=== PATIENT | female | born 1960 | race Caucasian/White ===

== ENCOUNTER 2019-06-23 13:14 | Outpatient (CLI) | payer BC, SELFPAY ==
--- NOTE | 2019-06-23 13:35 | MM_ITS ---
WS: [id number] SCREENING DIGITAL MAMMOGRAM WITH CAD HISTORY: SCREENING COMPARISON: 06/28/2014 and 02/24/2008 Bilateral CC and MLO views submitted. Computer aided detection analyzed. Breast composition: There are scattered areas of fibroglandular density. No suspicious masses, microc alcifications or architectural distortion. MM/[id number] IMPRESSION: BI-RADS: 1-Negative FOLLOW UP: 1 Year Follow-up
== END 2019-06-23 13:15 | disposition home or self-care (01) ==
LOC: RADSHAW 13:18
PROVIDERS: Family Provider Nurse Practitioner; PCP Nurse Practitioner; Visit Provider Nurse Practitioner
DX: Z12.31 Encounter for screening mammogram for malignant neoplasm of breast (principal)
CPT/HCPCS: 77067

== ENCOUNTER 2020-05-20 00:41 | Inpatient (IN) | payer BC, SELFPAY ==
[2020-05-20] VITALS (8 sets, daily range): BP systolic 112–146; BP diastolic 72–87; PULSE 74–90; RESP 15–20; TEMP 36.4–36.9; O2SAT 97–98; BMI 26.6
--- NOTE | 2020-05-20 01:16 | W.ED.PSYCH ---
HPI - Psych General: Chief Complaint: Psychiatric Symptoms Stated Complaint: psych issues Time Seen by Provider: 05/20/20 01:02 Source: patient Mode of arrival: ambulatory Limitations: no limitations History of Present Illness: HPI Narrative: Mrs. Shoemaker is a very nice 59-year-old female who comes in complaining of depression, anxiety and thoughts of feeling better off . Patient states she is very depressed and feels as though she needs help. Patient is tearful and cannot talk about in detail why she feels this way but states that she knows that she needs to get help. Patient has no active plan to kill herself just the recurring thoughts that she may be better off if she was . Review of Systems Const: Denies: fever(s), chills, body aches, fatigue, malaise or diaphoresis Eyes: Denies: change in vision, blurry vision, photophobia, eye discomfort, eye discharge, eye redness or yellow eyes ENMT: Denies: throat pain, odynophagia, hoarseness, swelling of lips/tongue, ear or mastoid pain, ear discharge, change in hearing or nasal discharge Card: Denies: chest pain, palpitations, irregular heart rhythm, edema, lightheadedness, syncope, pre-syncope, dyspnea on exertion or orthopnea Resp: Denies: dyspnea, productive cough, non-productive cough, wheezing, hemoptysis or chest congestion GI: Denies: abdominal pain, nausea, vomiting, hematemesis, coffee ground emesis, heartburn, diarrhea, constipation, GI cramping, hematochezia or melena : Denies: flank pain, dysuria, urinary frequency, urinary urgency or hematuria Musc: Denies: neck pain, back pain, extremity pain, extremity swelling, joint pain, joint swelling, joint redness, joint warmth or joint stiffness Skin/Breast: Denies: rash, pruritus, erythema, skin pain or skin tenderness Neuro: Denies: headache(s), numbness in extremities, weakness in extremities, sensory changes, lack of coordination, difficulty walking, dizziness, vertigo, confusion, Slurred speech present or seizure-like activity Abhilash/Lymph: Denies: easy bruising, easy bleeding, petechiae, purpura or enlarged lymph nodes All/Imm: Denies: urticaria, throat swelling, tongue swelling, facial swelling or acute wheezing PFSH ED PFSH: Social History (Updated 07/14/19 @ 08:39 by Toney Martinez LPN) Smoking and tobacco status: current every day smoker Alcohol intake: current Alcohol intake frequency: holidays/special occasions only Physical Exam Const: COMMON NORMALS: no acute distress, patient oriented x3, no limitations and alert GENERAL APPEARANCE: cooperative HENMT: COMMON NORMALS: normocephalic, atraumatic, external ears normal, EAC's normal and Normal external nose present HEAD & SCALP: normal to inspection, normocephalic and atraumatic FACE & SINUS: normal facial exam and face symmetric NOSE: Normal external nose present and Normal nares present EXTERNAL EAR: Yes external ears normal EXTERNAL AUDITORY CANAL: EAC's normal MOUTH: Normal oral and palatal mucosa present, lip normal and tongue normal Eye: COMMON NORMALS: Equal, round and reactive pupils present and conjunctivae normal GENERAL EYE: appearance normal, both eyes and all related structures ALIGNMENT: Yes alignment normal PERIORBITAL: periorbital findings normal EYELID: eyelids normal CONJUNCTIVA: Yes conjunctivae normal SCLERA: sclerae normal PUPIL: Yes Equal, round and reactive pupils present Neck/C-Spine: COMMON NORMALS: full ROM, no lymphadenopathy, supple, no meningeal signs and no JVD GENERAL: Yes normal visual inspection and Yes trachea midline Chest: COMMONS NORMALS: normal inspection of the chest and normal palpation of entire chest wall Resp: COMMON NORMALS: normal respiratory effort, No retractions, No use of accessory muscles and clear to auscultation bilaterally EFFORT & INSPECTION: Yes able to speak in complete sentences and Yes symmetric chest movement AUSCULTATION: clear to auscultation bilaterally, no crackles, no rales, no rhonchi and no wheezes Cardio: COMMON NORMALS: no JVD, regular rate, regular rhythm, S1 normal heart sound present and S2 normal heart sound present RATE: regular rate RHYTHM: regular rhythm HEART SOUNDS: S1 normal heart sound present, S2 normal heart sound present, no click, no gallops, no murmurs and no rubs GI: COMMON NORMALS: Soft to palpation and No hepatosplenomegaly present PALPATION: Yes Soft to palpation, No Tenderness to palpation present (GI), No Guarding due to palpation present (GI), No Rigid due to palpation, Yes No hepatosplenomegaly present, No Hernia present, No Palpable mass present and No Pulsatile mass present : COMMON NORMALS: Yes no CVA tenderness BLADDER/KIDNEY EXAM: Yes no CVA tenderness EXTERNAL FEMALE EXAM: No Hernia present Back/Pelvis: COMMON NORMALS: no CVA tenderness, thoracic and lumbar spine normal to inspection, no thoracic nor lumbar tenderness and thoraco-lumbar ROM normal Extremity: COMMON NORMALS: normal to inspection, full ROM, capillary refill normal, no joint enlargement, no clubbing, cyanosis or edema and no calf tenderness Neuro: COMMON NORMALS: patient oriented x3, CN's II-XII intact bilaterally, moves all extremities, no focal motor deficits and no sensory deficits noted SENSORIUM/ORIENTATION: Yes alert MENINGEAL SIGNS: Yes no meningeal signs SPEECH: speech normal Psych: COMMON NORMALS: mental status grossly normal, Normal thought process present, cooperative, normal affect, speech normal and activity/motor behavior normal SPEECH: Yes normal speech THOUGHT PROCESS: Normal thought process present Skin: COMMON NORMALS: no rashes or lesions noted, turgor normal, no jaundice, no petechiae and no mottling GENERAL SKIN EXAM: no rashes or lesions noted and turgor normal MDM - Psych MDM Narrative: Medical decision making narrative: The case was reviewed with Dr. Orozco, he agrees to admit to the neuropsychiatric unit for further evaluation and care. The patient has no medical complaints at this time. Lab Data: Attestation: I reviewed the patient's lab results. Labs: Lab Results 05/20/20 05/20/20 05/20/20 Range/Units 01:11 01:11 01:11 WBC 6.4 (4.0-10.0) 10^3/ uL RBC 4.34 (4.1-5.3) 10^6/u L Hgb 14.3 (11.5-15.3) g/dL Hct 43.6 (37.0-47.0) % MCV 100.5 H (81-99) fL MCH 32.9 (28.0-34.0) pg MCHC 32.8 (30.0-36.0) g/dL RDW 13.5 (12.1-15.1) % Plt Count 326 (130-400) 10^3/c mm MPV 10.1 (7.4-10.4) fL Neut % (Auto) 47.2 % Lymph % (Auto) 36.5 % [place] % (Auto) 11.3 % Eos % (Auto) 4.1 % Baso % (Auto) 0.6 % Neut # (Auto) 3.01 (1.8-7.7) 10^3/u L Lymph # (Auto) 2.3 (0.8-4.8) 10^3/u L [place] # (Auto) 0.7 (0.2-0.9) 10^3/u L Eos # (Auto) 0.3 (0.0-0.8) 10^3/u L Baso # (Auto) 0.0 (0.0-0.1) 10^3/u L Nucleated RBC % (a uto) 0 % Nucleated RBCs # 0.0 /100WBC Sodium 141 (136-145) mmol/L Potassium 4.1 (3.5-5.1) mmol/L Chloride 108 H (98-107) mmol/L Carbon Dioxide 24 (22-29) mmol/L Anion Gap 13.1 (5-19) BUN 8 (8-23) mg/dL Creatinine 0.6 (0.5-0.9) mg/dL GFR Calculation 101.6 (90-130) mL/min Glucose 108 (65-115) mg/dL Calculated Osmolal ity 291 (285-295) mOsm/k g Calcium 8.8 (8.5-10.5) mg/dL Total Bilirubin 0.2 (0.15-1.2) mg/dL AST 22 (0-32) U/L ALT 19 (0-33) U/L Alkaline Phosphata se 115 H (35-105) IU/L Total Protein 6.8 (6.6-8.7) g/dL Albumin 4.0 (3.5-5.2) g/dL Globulin 2.8 (1.3-4.6) g/dL TSH 1.65 (0.27-4.20) uIU/ mL HCG, Qual Negative (Negative) Salicylates < 0.3 L (3-10) mg/dL Urine Opiates Scre en (Negative) ng/mL Acetaminophen < 5.0 L (10-30) ug/mL Ur Barbiturates Sc reen (Negative) ng/mL Ur Phencyclidine S crn (Negative) ng/mL Ur Amphetamines Sc reen (Negative) ng/mL U Benzodiazepines Scrn (Negative) ng/mL Urine Cocaine Scre en (Negative) ng/mL U Marijuana (THC) Screen (Negative) ng/mL Ethyl Alcohol 124 H (0-10) mg/dL 05/20/20 Range/Units 01:11 WBC (4.0-10.0) 10^3/ uL RBC (4.1-5.3) 10^6/u L Hgb (11.5-15.3) g/dL Hct (37.0-47.0) % MCV (81-99) fL MCH (28.0-34.0) pg MCHC (30.0-36.0) g/dL RDW (12.1-15.1) % Plt Count (130-400) 10^3/c mm MPV (7.4-10.4) fL Neut % (Auto) % Lymph % (Auto) % [place] % (Auto) % Eos % (Auto) % Baso % (Auto) % Neut # (Auto) (1.8-7.7) 10^3/u L Lymph # (Auto) (0.8-4.8) 10^3/u L [place] # (Auto) (0.2-0.9) 10^3/u L Eos # (Auto) (0.0-0.8) 10^3/u L Baso # (Auto) (0.0-0.1) 10^3/u L Nucleated RBC % (a uto) % Nucleated RBCs # /100WBC Sodium (136-145) mmol/L Potassium (3.5-5.1) mmol/L Chloride (98-107) mmol/L Carbon Dioxide (22-29) mmol/L Anion Gap (5-19) BUN (8-23) mg/dL Creatinine (0.5-0.9) mg/dL GFR Calculation (90-130) mL/min Glucose (65-115) mg/dL Calculated Osmolal ity (285-295) mOsm/k g Calcium (8.5-10.5) mg/dL Total Bilirubin (0.15-1.2) mg/dL AST (0-32) U/L ALT (0-33) U/L Alkaline Phosphata se (35-105) IU/L Total Protein (6.6-8.7) g/dL Albumin (3.5-5.2) g/dL Globulin (1.3-4.6) g/dL TSH (0.27-4.20) uIU/ mL HCG, Qual (Negative) Salicylates (3-10) mg/dL Urine Opiates Scre en Negative (Negative) ng/mL Acetaminophen (10-30) ug/mL Ur Barbiturates Sc reen Negative (Negative) ng/mL Ur Phencyclidine S crn Negative (Negative) ng/mL Ur Amphetamines Sc reen Negative (Negative) ng/mL U Benzodiazepines Scrn Negative (Negative) ng/mL Urine Cocaine Scre en Negative (Negative) ng/mL U Marijuana (THC) Screen Negative (Negative) ng/mL Ethyl Alcohol (0-10) mg/dL EKG Data^: EKG 1: Attestation: I personally reviewed and interpreted this EKG as follows: EKG interpretation date: 05/20/20 EKG interpretation time: 02:43 Interpretation: Normal sinus rhythm at 81 beats a minute, no blocks, normal intervals, no acute ST or T wave changes. Discharge Plan Discharge Patient Disposition: Admitted As Inpatient Admit Provider: Trav Orozco Clinical Impression: Suicidal ideation Depression Qualifiers: Depression Type: unspecified Qualified Code(s): F32.9 - Major depressive disorder, single episode, unspecified Condition: Stable Coding Level of Care Code ED Head Shipper for David Fwd Exam Comprehensive
[2020-05-20 01:18] LABS: Basophils % 0.6 %; Eosinophils # 0.3 10^3/uL (0.0-0.8); Eosinophils % 4.1 %; Hematocrit 43.6 % (37.0-47.0); Hemoglobin 14.3 g/dL (11.5-15.3); Lymphocytes # 2.3 10^3/uL (0.8-4.8); Lymphocytes % 36.5 %; Mean Corpuscular HGB Conc 32.8 g/dL (30.0-36.0); Mean Corpuscular Hemoglobin 32.9 pg (28.0-34.0); Mean Corpuscular Volume 100.5 fL (81-99); Mean Platelet Volume 10.1 fL (7.4-10.4); Monocytes # 0.7 10^3/uL (0.2-0.9); Monocytes % 11.3 %; Neutrophils # 3.01 10^3/uL (1.8-7.7); Neutrophils % 47.2 %; Nucleated Red Blood Cells % 0 %; Platelet Count 326 10^3/cmm (130-400); Red Blood Count 4.34 10^6/uL (4.1-5.3); Red Cell Distribution Width 13.5 % (12.1-15.1); White Blood Count 6.4 10^3/uL (4.0-10.0)
--- NOTE | 2020-05-20 01:19 | ECG_ITS ---
[facility] Test Date: 2020-05-20 Pat Name: Cinthia Sahara Department: Room: Gender: Female Post Secondary Professional: : 1960 Requested By: Janine Coley Order Number: [id number] Pendleton MD: LEANN MORRISSEY Measurements Intervals [place] Rate: 81 P: 67 IN: 137 QRS: 45 QRSD: 82 T: 42 QT: 378 QTc: 440 Interpretive Statements SINUS RHYTHM Compared to ECG 08/09/2018 06:08:37 Sinus arrhythmia no longer present Electronically Signed On 05-20-2020 18:55:03 CHARGE ENTRY CLERK by LEANN MORRISSEY [id number]
[2020-05-20 01:29] LABS: HCG, Serum Qual Negative (Negative)
[2020-05-20 01:34] LABS: Amphetamines Screen Urine Negative (Negative); Barbiturates Screen Urine Negative (Negative); Benzodiazepines Screen Urine Negative (Negative); Cocaine Screen Urine Negative (Negative); Opiate Screen Urine Negative (Negative); PCP Screen Urine Negative (Negative); THC Screen Urine Negative (Negative)
[2020-05-20 01:43] LABS: Alanine Aminotransferase 19 U/L (0-33); Alcohol Level 124 mg/dL (0-10); Alkaline Phosphatase 115 IU/L (35-105); Anion Gap 13.1 (5-19); Aspartate Amino Transferase 22 U/L (0-32); Blood Urea Nitrogen 8 mg/dL (8-23); Calcium 8.8 mg/dL (8.5-10.5); Carbon Dioxide 24 mmol/L (22-29); Chloride 108 mmol/L (98-107); Globulin 2.8 g/dL (1.3-4.6); Glomerular Filtration Rate 101.6 mL/min (90-130); Glucose 108 mg/dL (65-115); Osmolality Calculated 291 mOsm/kg (285-295); Potassium 4.1 mmol/L (3.5-5.1); Sodium 141 mmol/L (136-145); Thyroid Stimulating Hormone 1.65 uIU/mL (0.27-4.20); Total Bilirubin 0.2 mg/dL (0.15-1.2); Total Protein 6.8 g/dL (6.6-8.7)
[2020-05-20 02:07] LABS: Acetaminophen < 5.0 ug/mL (10-30); Salicylate < 0.3 mg/dL (3-10)
[2020-05-20] MEDS: LORazepam 1 mg Tablet PO (03:01)
--- NOTE | 2020-05-20 03:13 | PC.NURSE ---
i agree with the assessment
--- NOTE | 2020-05-20 04:45 | PC.NURSE ---
Skin assessment revealed surgical scars, right hip, appendectomy.
[2020-05-20] MEDS: metoprolol tartrate 25 mg Tablet PO (08:19)
[2020-05-20] MEDS: lisinopril 5 mg Tablet PO (08:19)
[2020-05-20] MEDS: multivitamin therapeutic Tablet 1 TAB PO (08:19)
[2020-05-20] MEDS: atorvastatin 40 mg Tablet 20 MG PO (08:19)
[2020-05-20] MEDS: thiamine 100 mg Tablet PO (08:19)
[2020-05-20] MEDS: pantoprazole DR 40 mg Tablet PO (08:19)
[2020-05-20] MEDS: folic acid 1 mg Tablet PO (08:19)
[2020-05-20] MEDS: nicotine 21 mg Patch 1 PATCH TRANSDERMA (08:21)
[2020-05-20 08:30] LABS: SARS Covid-2 Antigen Negative (Negative)
[2020-05-20] MEDS: ALPRAZolam 0.5 mg Tablet PO (14:15)
--- NOTE | 2020-05-20 14:15 | PC.NURSE ---
Addendum entered by Carolina Ballesteros LPN 05/20/20 17:39: late entry for 1515 prn med effective no further c/o anxiety Original Note: PRN XANAX 0.5 MG GIVEN PO PER PT C/O STATED ANXIETY. WILL CONT TO MONITOR
--- NOTE | 2020-05-20 14:35 | P.HP_ITS ---
Providers/Chief Complaint Admitting Physician: Trav Orozco MD Primary Care Provider: Christina Pandya APN Chief Complaint: psych issues HPI NPU History of Present Illness September Sahara is a 59 year old female who presented to the ED with the following report: Chief Complaint: Psychiatric Symptoms Stated Complaint: psych issues Time Seen by Provider: 05/20/20 01:02 Source: patient Mode of arrival: ambulatory Limitations: no limitations History of Present Illness: HPI Narrative: Mrs. Shoemaker is a very nice 59-year-old female who comes in complaining of depression, anxiety and thoughts of feeling better off . Patient states she is very depressed and feels as though she needs help. Patient is tearful and cannot talk about in detail why she feels this way but states that she knows that she needs to get help. Patient has no active plan to kill herself just the recurring thoughts that she may be better off if she was . She was admitted to the neuropsychiatric unit for definitive treatment of those issues. Patient presents today reporting that she is never been hospitalized psychiatrically. She reports that she has been drinking for her entire life basically and is struggle with depression and anxiety. She reports that she sm okes about a pack of cigarettes a day, drinks at least 5 beers at night, but does not smoke marijuana or use any other illicit drugs. She never been to rehab and never had a DUI. She reports that things got bad when her brother was injured in a automobile accident when he drunk or drinking in 2007 and he in 2008 a paraplegic. They live the other on the same farm. She reports that her sister of a heart attack in October and her other sisters in a alf for the last 3 to 4 years in [place]. She reports she used to take care of her 1 and this is really made things tough and she started drinking. The only treatment she reports is from treatment from work in [place]. And she is been put on Effexor and Xanax, had been on trazodone but now Benadryl at night. She reports the last couple weeks have been rough, she is felt horrible and she started having thoughts to kill herself. We discussed the risks, benefits and alternatives of increasing her Effexor and starting BuSpar and she understood and agreed to proceed as is documented in this note. She denies any suicide attempts in her life. Psychiatric history: As above. This is her first hospitalization. Substance abuse history: As above. Family history: She endorses mental health and addiction issues on her mother side of the family but denies any suicide attempts or completions in her family. Developmental: She denies any problems with her mother's with her or her or delivery, she learned to walk and talk and met her developmental milestones on time, and she reports that she did not need speech therapy, learning support, emotional support or special education classes in school. Her mother and father were together when she was born and she is the oldest of their 4 children 3 girls and 1 boy. She reports that her childhood was good and she denied any emotional, physical or sexual abuse. 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 She is a heterosexual with her longest relationship being 8 years. She is never been , has never had children, she is never been in the , and she identifies herself as a Sikh. 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 She currently lives in a house alone. Legal history none She denies any history of any shelter or legal peril. Medical history: Please see ED note for medical history. Meds NPU Home Medications Medication Instructions Recorded Confirmed Last Taken Type alprazolam 0.5 mg tablet 0.5 mg PO DAILY PRN tab 07/14/19 05/20/20 Unknown History glucosamine sulfate 500 mg tablet 500 mg PO DAILY tab 07/14/19 05/20/20 Unknown History lisinopril 5 mg tablet 5 mg PO DAILY 07/14/19 05/20/20 Unknown History lovastatin 40 mg tablet 40 mg PO DAILY 07/14/19 05/20/20 Unknown History metoprolol tartrate 25 mg tablet 25 mg PO DAILY 07/14/19 05/20/20 Unknown History pantoprazole 40 mg tablet,delayed 40 mg PO DAILY 07/14/19 05/20/20 Unknown History release venlafaxine 225 mg PO DAILY 05/20/20 05/20/20 Unknown History Allergies Allergy/AdvReac Type Severity Reaction Status Date / Time codeine Allergy nausea Verified 07/14/19 08:33 hydrocodone Allergy nausea Verified 07/14/19 08:33 PFS NPU PFSH: Social History (Updated 07/14/19 @ 08:39 by Toney Martinez LPN) Smoking and tobacco status: current every day smoker Alcohol intake: current Alcohol intake frequency: holidays/special occasions only Mental Status Exam MSE Comments: This is an overweight white female with hospital scrubs on with limited grooming but adequate contact. No eye movements except for mild psychomotor retardation. Cooperative with exam in mild distress. Speech was more rate and volume. Mood described as depressed, affect reasonably organized. Thought content: Patient denied homicidal ideation and endorses suicidal ideation was not on the forefront of her mind, she denied auditory or visual hallucinations, there were no delusions reported or noted. Attention concentration were intact and memory appeared reliable but none were formally tested. She is alert and oriented. Insight and judgment were fair and impulse control was fair. Vitals/I&O/Wt Last Vital Signs Temp 98.5 F 05/20/20 13:41 Pulse 81 05/20/20 13:41 Resp 18 05/20/20 13:41 BP 112/74 05/20/20 13:41 Pulse Ox 97 05/20/20 05:38 Weight last 48 hrs Weight 72.575 kg Data NPU : 05/20/20 01:11 05/20/20 01:11 A&P Assessment and plan (1) Depression: Status: Acute Qualifiers: Depression Type: unspecified Qualified Code(s): F32.9 - Major depressive disorder, single episode, unspecified (2) Suicidal ideation: Status: Acute (3) Alcohol use: Status: Acute (4) Alcohol withdrawal: Status: Acute (5) Anxiety: Status: Acute (6) Grief: Status: Acute Additional A&P Information This is a 59-year-old white female with a long history of alcohol use and depression who presents on medication and desiring to discontinue her drinking and get help with her depression and anxiety. 1. Continue current medication. Increase Effexor XR to 300 mg p.o. every morning, start Benadryl 25 mg p.o. nightly and BuSpar 10 mg p.o. twice daily. 2. Continue every 15 minute checks for safety. 3. Continue CIWA protocol. 4. Encourage individual, group and milieu therapy. 5. Encourage sober living treatment after discharge at the highest level of care to which she is willing to commit. Involuntary Hold Information 96 Hour Hold: 96 Hour Involuntary Admission: No Attestations NPU Medical Necessity Statement*: Inpatient hospitalization is medically necessary and the clinically appropriate intervention at this time. We will monitor medications and make changes as indicated. Likely length of stay 3 to 5 days. She will hospital for over 2 midnights. Coding Level of Care Code Acute Tank Bottom Assembler for David Fwd Diagnoses Depression F32.9 Depression Type: unspecified Suicidal ideation R45.851 Alcohol use Z72.89 Alcohol withdrawal F10.239 Anxiety F41.9 Grief F43.21
[2020-05-20] MEDS: venlafaxine ER (24HR) 75 mg Capsule 225 MG PO (16:35)
[2020-05-20] MEDS: diphenhydrAMINE 25 mg Capsule PO (20:24)
[2020-05-20] MEDS: BuSPIRONE 10 mg Tablet PO (20:24)
[2020-05-21 06:00] VITALS: BP 126/81; PULSE 75; RESP 16; TEMP 36.4; O2SAT 96
[2020-05-21] MEDS: venlafaxine ER (24HR) 150 mg Capsule 300 MG PO (06:11)
[2020-05-21] MEDS: nicotine 21 mg Patch 1 PATCH TRANSDERMA (06:26)
[2020-05-21] MEDS: folic acid 1 mg Tablet PO (08:00)
[2020-05-21] MEDS: multivitamin therapeutic Tablet 1 TAB PO (08:00)
[2020-05-21] MEDS: metoprolol tartrate 25 mg Tablet PO (08:00)
[2020-05-21] MEDS: atorvastatin 40 mg Tablet 20 MG PO (08:01)
[2020-05-21] MEDS: pantoprazole DR 40 mg Tablet PO (08:01)
[2020-05-21] MEDS: lisinopril 5 mg Tablet PO (08:01)
[2020-05-21] MEDS: BuSPIRONE 10 mg Tablet PO ×2 (08:01→20:02)
[2020-05-21] MEDS: thiamine 100 mg Tablet PO (08:01)
[2020-05-21 14:00] VITALS: BP 120/81; PULSE 85; RESP 18; TEMP 36.8; O2SAT 96
--- NOTE | 2020-05-21 14:54 | PM.NPN ---
Subjective NPU Subjective: Interval history: Adina presents today reporting that she is feeling better little by little. She continues to have positive thinking about abstinence from alcohol. She reports that she is doing okay on the increased Effexor XR. She denied any problems with the BuSpar. We discussed working with the treatment team tomorrow to look at the options available for sober living treatment and preparing for discharge. Mental Status Exam MSE Comments: This is an overweight white female with hospital scrubs on with limited grooming but adequate contact. No eye movements except for mild psychomotor retardation. Cooperative with exam in no acute distress. Speech was more normal rate and volume. Mood described as a little better, affect congruent. Thought process organized. Thought content: Patient denied homicidal ideation and suicidal ideation, she denied auditory or visual hallucinations, there were no delusions reported or noted. Attention concentration were intact and memory appeared reliable but none were formally tested. She is alert and oriented x3. Insight and judgment were fair and impulse control was fair. Vitals/I&O/Wt Last Vital Signs Temp 97.0 F L 05/21/20 20:09 Pulse 87 05/21/20 20:09 Resp 15 05/21/20 20:09 BP 134/75 05/21/20 20:09 Pulse Ox 96 05/21/20 20:09 Weight last 48 hrs Weight 72.575 kg Data NPU : 05/20/20 01:11 05/20/20 01:11 A&P Additional A&P Information (1) Depression: (2) Suicidal ideation: (3) Alcohol use: (4) Alcohol withdrawal: (5) Anxiety: (6) Grief: This is a 59-year-old white female with a long history of alcohol use and depression who presents on medication and desiring to discontinue her drinking and get help with her depression and anxiety. 1. Continue current medication. 2. Continue every 15 minute checks for safety. 3. Continue CIWA protocol. 4. Encourage individual, group and milieu therapy. 5. Encourage sober living treatment after discharge at the highest level of care to which she is willing to commit. Involuntary Hold Information 96 Hour Hold: 96 Hour Involuntary Admission: No Attestations NPU Medical Necessity Statement*: Inpatient hospitalization is medically necessary and the clinically appropriate intervention at this time. We will monitor medications and make changes as indicated. Likely length of stay 1-3 days. Coding Level of Care Code Acute Delivery Professional for David Valente
--- NOTE | 2020-05-21 19:54 | PC.NURSE ---
AWAKE, LAYING IN HER BED. PLEASANT TO TALK TO. DENIES WANTING TO HARM SELF OR OTHERS.
[2020-05-21] MEDS: diphenhydrAMINE 25 mg Capsule PO (20:02)
[2020-05-21 20:09] VITALS: BP 134/75; PULSE 87; RESP 15; TEMP 36.1; O2SAT 96
[2020-05-22 06:00] VITALS: BP 148/93; PULSE 87; RESP 18; TEMP 36.3; O2SAT 95
[2020-05-22] MEDS: venlafaxine ER (24HR) 150 mg Capsule 300 MG PO (06:20)
[2020-05-22] MEDS: pantoprazole DR 40 mg Tablet PO (07:58)
[2020-05-22] MEDS: folic acid 1 mg Tablet PO (07:58)
[2020-05-22] MEDS: multivitamin therapeutic Tablet 1 TAB PO (07:58)
[2020-05-22] MEDS: thiamine 100 mg Tablet PO (07:59)
[2020-05-22] MEDS: lisinopril 5 mg Tablet PO (07:59)
[2020-05-22] MEDS: metoprolol tartrate 25 mg Tablet PO (07:59)
[2020-05-22] MEDS: atorvastatin 40 mg Tablet 20 MG PO (07:59)
[2020-05-22] MEDS: BuSPIRONE 10 mg Tablet PO (08:00)
[2020-05-22] MEDS: nicotine 21 mg Patch 1 PATCH TRANSDERMA (11:40)
[2020-05-22 13:05] VITALS: BP 148/93; PULSE 87; RESP 18; TEMP 36.3; O2SAT 95
--- NOTE | 2020-05-22 13:09 | P.DS_ITS ---
Diagnoses at Discharge Discharge Diagnosis (1) Depression: Status: Acute Qualifiers: Depression Type: unspecified Qualified Code(s): F32.9 - Major depressive disorder, single episode, unspecified (2) Suicidal ideation: Status: Resolved (3) Alcohol use: Status: Acute (4) Alcohol withdrawal: Status: Acute (5) Anxiety: Status: Acute (6) Grief: Status: Acute Reason for Visit Reason for Visit: psych issues Brief History: History of Present Illness September Sahara is a 59 year old female who presented to the ED with the following report: Chief Complaint: Psychiatric Symptoms Stated Complaint: psych issues Time Seen by Provider: 05/20/20 01:02 Source: patient Mode of arrival: ambulatory Limitations: no limitations History of Present Illness: HPI Narrative: Mrs. Shoemaker is a very nice 59-year-old female who comes in complaining of depression, anxiety and thoughts of feeling better off . Patient states she is very depressed and feels as though she needs help. Patient is tearful and cannot talk about in detail why she feels this way but states that she knows that she needs to get help. Patient has no active plan to kill herself just the recurring thoughts that she may be better off if she was . She was admitted to the neuropsychiatric unit for definitive treatment of those issues. Patient presents today reporting that she is never been hospitalized psychiatrically. She reports that she has been drinking for her entire life basically and is struggle with depression and anxiety. She reports that she smokes about a pack of cigarettes a day, drinks at least 5 beers at night, but does not smoke marijuana or use any other illicit drugs. She never been to rehab and never had a DUI. She reports that things got bad when her brother was injured in a automobile accident when he drunk or drinking in 2007 and he in 2008 a paraplegic. They live the other [place] the same farm. She reports that her sister of a heart attack in October and her other sisters in a usp for the last 3 to 4 years in [place]. She reports she used to take care of her 1 and this is really made things tough and she started drinking. The only treatment she reports is from treatment from work in [place]. And she is been put on Effexor and Xanax, had been on trazodone but now Benadryl at night. She reports the last couple weeks have been rough, she is felt horrible and she started having thoughts to kill herself. We discussed the r isks, benefits and alternatives of increasing her Effexor and starting BuSpar and she understood and agreed to proceed as is documented in this note. She denies any suicide attempts in her life. Psychiatric history: As above. This is her first hospitalization. Substance abuse history: As above. Family history: She endorses mental health and addiction issues on her mother side of the family but denies any suicide attempts or completions in her family. Developmental: She denies any problems with her mother's with her or her or delivery, she learned to walk and talk and met her developmental milestones on time, and she reports that she did not need speech therapy, learning support, emotional support or special education classes in school. Her mother and father were together when she was born and she is the oldest of their 4 children 3 girls and 1 boy. She reports that her childhood was good and she denied any emotional, physical or sexual abuse. 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 She is a heterosexual with her longest relationship being 8 years. She is never been , has never had children, she is never been in the , and she identifies herself as a Episcopal. 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 She currently lives in a house alone. Legal history none She denies any history of any fdc or legal peril. Medical history: Please see ED note for medical history. Hospital Course Hospital Course September presented to the emergency department intoxicated, endorsing depression and suicidal ideation. She was admitted to the neuropsychiatric unit for definitive treatment of those issues. On the unit she quickly acclimated to the individual, group and milieu therapies provided. She was started on BuSpar, her Effexor XR was increased to 300 mg by mouth every morning and she was given thiamine and folic acid for nutritional support. She showed marked improvement with those changes and was able to contract for safety prior to discharge. During The hospitalization, the patient had routine laboratory studies which were within normal limits except for a few outliers. Additionally there was a g eneral medical evaluation, which was also within normal limits revealed no processes. Discharge summary: At the time of discharge the patient was absent lethality, there was no psychosis reported or noted. Mood and anxiety were well managed. The patient endorsed the plan to avoid all drugs of abuse and follow-up with the recommendations of the treatment team. The patient was evaluated and deemed to be absent credible lethality, and had achieved the maximum benefit from an inpatient hospitalization, so she was discharged. Involuntary Hold Information 96 Hour Hold: 96 Hour Involuntary Admission: No Mental Status Exam MSE Comments: This is an overweight white female with hospital scrubs on with limited grooming but adequate contact. No eye movements except for mild psychomotor retardation. Cooperative with exam in no acute distress. Speech was more normal rate and volume. Mood described as better, affect congruent. Thought process organized. Thought content: Patient denied homicidal ideation and suicidal ideation, she denied auditory or visual hallucinations, there were no delusions reported or noted. Attention concentration were intact and memory appeared reliable but none were formally tested. She is alert and oriented x3. Insight and judgment were fair and impulse control was fair. Discharge Data Vitals: Last Vital Signs Temp 97.4 F L 05/22/20 13:05 Pulse 87 05/22/20 13:05 Resp 18 05/22/20 13:05 BP 148/93 05/22/20 13:05 Pulse Ox 95 05/22/20 13:05 Discharge Plan Discharge Patient Disposition: Home Condition: Stable Prescriptions: New venlafaxine 150 mg Capsule,Extended Release 24hr 300 mg PO QAM 30 Days Qty: 60 RF: 1 buspirone 10 mg Tablet 10 mg PO 0900,2100 30 Days Qty: 60 RF: 1 folic acid 1 mg Tablet 1 mg PO DAILY 30 Days Qty: 30 RF: 1 Vitamin B-1 (mononitrate) 100 mg Tablet 100 mg PO DAILY 30 Days Qty: 30 RF: 1 Continued triamcinolone acetonide [Kenalog] 40 mg/mL suspension 40 mg intra-articular ONCE Qty: 2 RF: 0 ropivacaine (PF) 5 mg/mL (0.5 %) solution 2 ml intra-articular ONCE Qty: 2 RF: 0 glucosamine sulfate [Glucosamine] 500 mg tablet 500 mg PO DAILY RF: 0 metoprolol tartrate 25 mg tablet 25 mg PO DAILY RF: 0 lovastatin 40 mg tablet 40 mg PO DAILY RF: 0 lisinopril [Zestril] 5 mg tablet 5 mg PO DAILY RF: 0 pantoprazole [Protonix] 40 mg tablet,delayed release (DR/EC) 40 mg PO DAILY RF: 0 Xanax 0.5 mg tablet 0.5 mg PO DAILY PRN (Reason: Anxiety) 30 Days Qty: 30 RF: 1 Discontinued venlafaxine 225 mg tablet extended release 24hr 225 mg PO DAILY RF: 0 Discharge Orders: Discharge Order (Routine); Ordered 05/22/20 Ordered By: Trav Orozco Referrals: [facility] [Other] [facility] [Other] [facility] [Outside] - 4-7 days (Follow up for intake assessment. Call beforehand for instructions. Once this initial is done you should be able to have services at the [facility] if you prefer.) Christina Pandya, REVENUE INTEGRITY ANALYST [Primary Care Provider] - Discharge Diet: Regular Discharge Activity: Resume usual activity Patient Instructions: Depression (DC), Anxiety (DC) Discharge Attestations NPU Time Spent in Discharge Care*: less than 30 min Specific Discharge Activities: Specific discharge activities: educating patient, discussing with case packer and sealer/social workers/dc planners, documenting/other paperwork and evaluating patient/reviewing data Coding Level of Care Code Acute Hammer Runner for Chg Fwd Diagnoses Depression F32.9 Depression Type: unspecified Suicidal ideation R45.851 Alcohol use Z72.89 Alcohol withdrawal F10.239 Anxiety F41.9 Grief F43.21
--- NOTE | 2020-05-22 13:48 | PC.RESP ---
Smoking Cessation information sent to patient.
== END 2020-05-22 15:05 | disposition home or self-care (01) | DRG 897 ==
LOC: ER 02:25 → NP 15:16
PROVIDERS: Admitting Provider Psychiatry & Neurology Psychiatry; Emergency Provider Emergency Medicine; PCP Nurse Practitioner; Visit Provider Psychiatry & Neurology Psychiatry
DX: F10.229 Alcohol dependence with intoxication, unspecified (principal); R45.851 Suicidal ideations; F10.239 Alcohol dependence with withdrawal, unspecified; F41.8 Other specified anxiety disorders; F17.210 Nicotine dependence, cigarettes, uncomplicated; Y90.6 Blood alcohol level of 120-199 mg/100 ml
CPT/HCPCS: 12345; 80053; 80306; 80307; 84443; 84703; 85025; 87426; 90686; 93005; 99284

== ENCOUNTER 2021-05-18 15:01 | Outpatient (CLI) | payer BC, SELFPAY ==
--- NOTE | 2021-05-18 15:08 | MM_ITS ---
WS: [id number] SCREENING DIGITAL MAMMOGRAM WITH CAD HISTORY: SCREENING COMPARISON: 06/23/2019, 06/28/2014 Bilateral CC and MLO views submitted. Computer aided detection analyzed. Breast composition: There are scattered areas of fibroglandular density. Asymmetry measuring 8 mm in the anterior RIGHT breast seen just posterior and lateral to the nipple. There is an additional asymmetry which is nodular measuring 5 mm on the LEFT MLO projection in the an terior breast. Not definitely seen on the CC projection. MM/[place] [id number] IMPRESSION: BI-RADS: 0-Incomplete: Need additional imaging evaluation FOLLOW UP: Need Additional Imaging Bilateral breast: Spot compression views (CC and MLO). True ML. Ultrasound to f azeb if abnormality persists.
== END 2021-05-18 15:02 | disposition home or self-care (01) ==
LOC: RADSHAW 15:06
PROVIDERS: PCP Nurse Practitioner; Visit Provider Nurse Practitioner
DX: Z12.31 Encounter for screening mammogram for malignant neoplasm of breast (principal)
CPT/HCPCS: 77067

== ENCOUNTER 2021-05-18 15:55 | Outpatient (CLI) | payer BC, SELFPAY ==
--- NOTE | 2021-05-18 16:06 | XRR_ITS ---
PROCEDURE INFORMATION: Exam: XR Right Knee Exam date and time: 05/18/2021 4:06 PM Age: 60 years old Clinical indication: Patient HX: Chronic right knee pain, swelling on medial side; Additional info: Chronic pain of right knee TECHNIQUE: Imaging protocol: XR Right knee. Views: 1 or 2 views. COMPARISON: [facility] Run[facility] Leg [id number] 11/10/2017 9:52 AM FINDINGS: Bones/joints: Negative for fracture. Mild joint space narrowing of the medial and patellofemoral compartment. There is moderate degenerative narrowing and marginal osteophyte formation around the lateral compartment. Soft tissues: Normal. XR/XR knee RT 1-2V [id number] IMPRESSION: [id number] tricompartmental DJD of the right knee most significant at the lateral compartment.
== END 2021-05-18 15:56 | disposition home or self-care (01) ==
LOC: RAD 15:58
PROVIDERS: PCP Nurse Practitioner; Visit Provider Nurse Practitioner
DX: M17.11 Unilateral primary osteoarthritis, right knee (principal)
CPT/HCPCS: 73560

== ENCOUNTER 2021-10-25 13:29 | Outpatient (CLI) | payer BC, SELFPAY ==
--- NOTE | 2021-10-25 13:51 | MR_ITS ---
WS: [id number] MRI RIGHT KNEE HISTORY: CHRONIC KNEE PAIN/SWELLING COMPARISON: Radiograph 05/18/2021. Anterior cruciate ligament: Normal with intrasubstance degeneration. Posterior cruciate ligament: Intact. Medial collateral ligament: Fluid adjacent to an intact MCL. Posterior lateral corner structures: Intact. Extruded meniscus displacing the posterior lateral corne r structures. Medial menisci: Horizontal tear posterior horn with extension to the inferior articular surface. Othe rwise fraying along the surfaces. Lateral meniscus: Small caliber menisci. Meniscus is extruded from the joint line and extends superio r to the joint. Extensor mechanism: Distal quadriceps tendon and patellar tendons are intact. Fluid and soft tissue: Small suprapatellar joint effusion. There is a large lobulated Padron's cyst. T here is an additional lobulated cyst along the lateral joint line, superficial to the meniscus which is extruded. Osseous and articular structures: Patellofemoral compartment: Marked narrowing of patellofemoral joint space with chondromalacia. Later al subluxation of the patella. No marrow edema. Medial compartment: Mild narrowing of the medial compartment. Marked thinning and fissuring of the ca rtilage. No marrow edema. Focal low-attenuation nodule towards the intercondylar notch of the medial compartment measuring 4 mm. This could be a small loose body or osteophyte. Lateral compartment: Severe narrowing of the lateral compartment with complete loss of cartilage and subchondral cystic changes. Large osteophytes. MR/MR knee RT wo con* [id number] IMPRESSION: 1. Severe lateral compartment joint space narrowing with osteophytes and loss of cartilage and extruded meniscus. Meniscus is extruded and extends superior t o the joint line. Adjacent lobulated cyst is probably a meniscal cyst. 2. Mild narrowing and internal derangement medial compartment. 3. Horizontal tear posterior horn medial meniscus to the inferior articulating surface. 4. Moderate-sized joint effusion and large Padron's cyst. 5. Displaced posterior lateral corner structures by the extruded meniscus and adjacent cyst which is probably a meniscal cyst.
== END 2021-10-25 13:30 | disposition home or self-care (01) ==
PROVIDERS: PCP Nurse Practitioner; Visit Provider Nurse Practitioner
DX: M25.561 Pain in right knee (principal); M71.21 Synovial cyst of popliteal space [Baker], right knee; M23.303 Other meniscus derangements, unspecified medial meniscus, right knee; M25.461 Effusion, right knee
CPT/HCPCS: 73721

== ENCOUNTER → 2021-11-02 09:02 | Outpatient (BNVA) | payer BC, SELFPAY | PROVIDERS: PCP Nurse Practitioner; Referring Provider Nurse Practitioner Family; Visit Provider Orthopaedic Surgery | DX: S89.91XA Unspecified injury of right lower leg, initial encounter (principal); X58.XXXA Exposure to other specified factors, initial encounter; M17.11 Unilateral primary osteoarthritis, right knee | CPT/HCPCS: 73560; 73565 ==

== ENCOUNTER 2021-12-11 14:48 | Outpatient (CLI) | payer BC, SELFPAY ==
--- NOTE | 2021-12-11 14:53 | MM_ITS ---
WS: [id number] ADDITIONAL VIEWS BILATERAL MAMMOGRAM AND BILATERAL BREAST ULTRASOUND, WITH DIGITAL BREAST tomosynthes is. ADDITIONAL VIEWS BILATERAL MAMMOGRAM WITH DIGITAL BREAST TOMOSYNTHESIS AND SM. HISTORY: ABNORMAL MAMMO COMPARISON: 05/18/2021 and 06/23/2019 Right breast: Asymmetry in the anterior RIGHT breast just posterior to the nipple. On the lateral pro jection is a 9 mm asymmetry just posterior to the nipple which may be the very mild asymmetry lateral to the nipple. Left breast: 6 mm asymmetry seen best on the LEFT MLO projection just lateral and superior to the nip ple. This asymmetry persists with additional views and additional imaging. BREAST ULTRASOUND RIGHT breast: Hypoechoic nodule RIGHT breast at 9:00 at the areolar measures 6 x 8 x 4 mm. No increas ed vascularity. There are a few septations. No increased vascularity. LEFT breast: There is a hypoechoic nodule at 2:00, 1 cm from the nipple measuring 7 x 6 x 2 mm. This corresponds to the mammographic abnormality. There are a few additional hypoechoic areas which are ve ry small cysts. MM/[id number] IMPRESSION: BI-RADS: 3-Probably Benign FOLLOW UP: 6 Month Follow-up Recommend bilateral breast ultrasound follow-up to reevaluate the probable comp king cyst in the anterior portion of each breast.
== END 2021-12-11 14:49 | disposition home or self-care (01) ==
PROVIDERS: PCP Nurse Practitioner; Visit Provider Nurse Practitioner Family
DX: R92.8 Other abnormal and inconclusive findings on diagnostic imaging of breast (principal); N60.02 Solitary cyst of left breast; N63.10 Unspecified lump in the right breast, unspecified quadrant
CPT/HCPCS: 76642; 77062

== ENCOUNTER → 2022-07-24 08:24 | Outpatient (BNVA) | payer BC, SELFPAY | PROVIDERS: PCP Nurse Practitioner; Visit Provider Orthopaedic Surgery | DX: M16.12 Unilateral primary osteoarthritis, left hip (principal); Z96.641 Presence of right artificial hip joint | CPT/HCPCS: 73502 ==

== ENCOUNTER 2022-08-26 11:29 | Observation (INO) | payer BC, SELFPAY ==
[2022-08-16 13:04] VITALS: BMI 26.6
--- NOTE | 2022-08-16 13:38 | P.ANESASSM_ITS ---
Pre-Anesthetic Assessment Height/Weight: Height 1.65 m Weight 72.575 kg Operation Date: 08/26/22 07:00 Proposed Procedures p Left total hip arthroplasty:14208, M16.12(Left) - Luis Eduardo Duque MD Familial anesthetic complications: None Social Tobacco and No alcohol Exam alert, oriented x 3, clear to auscultation bilaterally and regular rate & rhythm Airway Mallampati: Class II Dentition: false Pulmonary None reported CV/HEM Hypertension None reported Hepatic None reported GI Gastroesophageal Reflux Disease Metabolic Hyperlipidemia [facility] None reported Neuropsych None reported Anesthetic Plan ASA status: 2 Anesthesia: Regional (specify below) Other: spinal Risk of > 500 ml blood loss (7ml/kg in children): Yes, adequate IV access and fluids planned Medications/Allergies Home Medications Medication Instructions Recorded Confirmed Last Taken Type glucosamine sulfate 500 mg tablet 500 mg PO DAILY 07/14/19 08/16/22 Unknown History (Glucosamine) lisinopril 5 mg tablet (Zestril) 5 mg PO DAILY 07/14/19 08/16/22 Unknown History lovastatin 40 mg tablet 40 mg PO DAILY 07/14/19 08/16/22 Unknown History metoprolol tartrate 25 mg tablet 25 mg PO DAILY 07/14/19 08/16/22 Unknown History pantoprazole 40 mg tablet,delayed 40 mg PO DAILY 07/14/19 08/16/22 Unknown History release (Protonix) alprazolam 0.5 mg tablet (Xanax) 0.5 mg PO DAILY PRN Anxiety 30 05/22/20 Unknown Rx days #30 tabs buspirone 10 mg tablet 10 mg PO 0900,2100 30 days #60 tabs 05/22/20 08/16/22 Unknown Rx multivitamin 1 tab PO DAILY 08/16/22 08/16/22 Unknown History naproxen sodium 200 mg PO PRN PRN Pain 08/16/22 08/16/22 Unknown History venlafaxine 150 mg 300 mg PO DAILY 08/16/22 08/16/22 Unknown History capsule,extended release 24 hr Allergies Allergy/AdvReac Type Severity Reaction Status Date / Time codeine Allergy nausea Verified 07/24/22 08:14 hydrocodone Allergy nausea Verified 07/24/22 08:14 [facility] Anesthesia Social History Smoking and tobacco status: current every day smoker Alcohol intake: current Alcohol intake frequency: holidays/special occasions only Data Anesthesia Cardiac Studies: No Data to Display
[2022-08-16 13:42] LABS: Basophils # 0.1 10^3/uL (0.0-0.1); Basophils % 0.5 %; Eosinophils # 0.3 10^3/uL (0.0-0.8); Eosinophils % 2.8 %; Hematocrit 42.9 % (37.0-47.0); Hemoglobin 14.1 g/dL (11.5-15.3); Lymphocytes # 2.4 10^3/uL (0.8-4.8); Lymphocytes % 24.9 %; Mean Corpuscular HGB Conc 32.9 g/dL (30.0-36.0); Mean Corpuscular Hemoglobin 32.3 pg (28.0-34.0); Mean Corpuscular Volume 98.2 fl (81-99); Mean Platelet Volume 9.8 fL (7.4-10.4); Monocytes # 0.7 10^3/uL (0.2-0.9); Monocytes % 7.2 %; Neutrophils # 6.08 10^3/uL (1.8-7.7); Neutrophils % 64.4 %; Nucleated Red Blood Cells % 0 %; Platelet Count 321 10^3/cmm (130-400); Red Blood Count 4.37 10^6/uL (4.1-5.3); Red Cell Distribution Width 14.2 % (12.1-15.1); White Blood Count 9.4 10^3/uL (4.0-10.0)
[2022-08-16 14:01] LABS: Alanine Aminotransferase 14 U/L (0-33); Alkaline Phosphatase 120 U/L (35-105); Anion Gap 14.1 (5-19); Aspartate Amino Transferase 19 U/L (0-32); Blood Urea Nitrogen 11 mg/dL (8-23); Calcium 9.2 mg/dL (8.5-10.5); Carbon Dioxide 28 mmol/L (22-29); Chloride 102 mmol/L (98-107); Glucose 98 mg/dL (65-115); Osmolality Calculated 289 mOsm/kg (285-295); Potassium 4.1 mmol/L (3.5-5.1); Sodium 140 mmol/L (136-145); Total Bilirubin 0.3 mg/dL (0.15-1.2)
[2022-08-26] VITALS (28 sets, daily range): BP systolic 74–144; BP diastolic 46–83; PULSE 58–88; RESP 15–18; TEMP 35.6–36.8; O2SAT 94–99
[2022-08-26] MEDS: CELEcoxib 200 mg Capsule 400 MG PO (06:19)
[2022-08-26] MEDS: acetaminophen 500 mg Tablet 1000 MG PO ×3 (06:19→21:58)
[2022-08-26] MEDS: gabapentin 300 mg Capsule PO ×2 (06:19→20:11)
[2022-08-26] MEDS: oxyCODONE 20 mg ER (12 HR) Tablet PO (06:20)
[2022-08-26] MEDS: sodium chloride 0.9% 1,000 ML 30 ML IV (06:20)
--- NOTE | 2022-08-26 06:46 | P.ANESUD_ITS ---
Pre-Anesthetic Update Pre-Anesthetic Assessment: Date of Surgery/Procedure: 08/26/22 Preop Kiera gnosis: Osteoarthritis left hip Proposed Procedure: Operation Date: 08/26/22 07:35 Proposed Procedures p Left total hip arthroplasty:77261, M16.12(Left) - Luis Eduardo Duque MD Any changes to Pre-Anesthetic Assessment?: No Last Intake: Intake Last Liquid Date 08/25/22 Last Liquid Time 21:00 Last Solid Date 08/25/22 Last Solid Time 21:00 Vitals: Temperature 96.0 F L 08/26/22 06:39 Pulse Rate 72 08/26/22 06:39 Respiratory Rate 16 08/26/22 06:39 Blood Pressure 144/83 08/26/22 06:39 Blood Pressure Bisi n 103 08/26/22 06:39 Pulse Oximetry 99 08/26/22 06:39 Oxygen Delivery Me thod 08/26/22 06:39 Exam: Pre-Anes Outpt Exam: alert, oriented x 3, clear to auscultation bilaterally and regular rate & rhythm Cardiac Studies: No Data to Display
--- NOTE | 2022-08-26 07:55 | P.HP_ITS ---
Same Day Surgery H&P Indication for Procedure/HPI DATE OF PROCEDURE: August 26, 2022 CHIEF COMPLAINT/INDICATIONFOR SURGICAL PROCEDURE: Osteoarthritis left hip here for total hip arthroplasty PREOP DIAGNOSIS: Osteoarthritis left hip PLANNED PROCEDURE: Operation Date: 08/26/22 07:35 Proposed Procedures p Left total hip arthroplasty:24034, M16.12(Left) - Luis Eduardo Duque MD 61-year-old here for left total hip arthroplasty she states that she has had pain to her hip for about a year now. She states that her pain is reproduced by lifting objects and walking for long periods of time. She states that her pain will wake her up at night. She states that her pain is to the groin area of her hip.? She reports that she tries to be active.? She can walk really no more than 50 yards without pausing and resting.? She states that she takes tylenol and naproxen with great relief.? Had a previous right total hip arthroplasty by Dr. Duarte and did well.? She states she does not want her left hip to reach the point of severe disability she had with her right and she is here to consider right total hip arthroplasty. Medications/Allergies* Home Medications Medication Instructions Recorded Confirmed Type glucosamine sulfate 500 mg tablet 500 mg PO DAILY 07/14/19 08/26/22 History (Glucosamine) lisinopril 5 mg tablet (Zestril) 5 mg PO DAILY 07/14/19 08/26/22 History lovastatin 40 mg tablet 40 mg PO DAILY 07/14/19 08/26/22 History metoprolol tartrate 25 mg tablet 25 mg PO DAILY 07/14/19 08/26/22 History pantoprazole 40 mg tablet,delayed 40 mg PO DAILY 07/14/19 08/26/22 History release (Protonix) multivitamin 1 tab PO DAILY 08/16/22 08/26/22 History naproxen sodium 200 mg PO PRN PRN Pain 08/16/22 08/26/22 History venlafaxine 150 mg 300 mg PO DAILY 08/16/22 08/26/22 History capsule,extended release 24 hr Allergies/Adverse Reactions Allergy/AdvReac Type Severity Reaction Status Date / Time codeine Allergy nausea Verified 08/26/22 06:10 hydrocodone Allergy nausea Verified 08/26/22 06:10 Current Medications: Generic Name Dose Route Start Last Admin Trade Name Freq PRN Reason Stop Dose Admin Sodium Chloride 1,000 mls @ 30 mls/hr 08/26/22 06:00 08/26/22 06:20 Sodium Chloride 0.9% IV 08/27/22 05:59 30 mls/hr .Q24H VÍCTOR Administration Pertinent History/Comorbid Conditions* Social History Smoking and tobacco status: current every day smoker Alcohol intake: current Alcohol intake frequency: holidays/special occasions only Pertinent Exam Findings alert, oriented x 3, clear to auscultation bilaterally, regular rate & rhythm a nd operative site marked Patient's left hip can be flexed to 90 degrees externally rotated 30 degrees and 0 to 20 degrees with severe pain Has no focal tenderness Ending she appears to have approximately 1 cm of shortening of the right hip relative to the left MOTOR: Strong quadriceps hamstrings tibialis anterior and extensor houses longus strength SENSATION: Intact to light touch Recommendations Surgery/Procedure today Coding Level of Care Code Acute Code for David Fwviolette
[2022-08-26] MEDS: ceFAZolin 2,000 MG in sodium chloride 0.9% (plus) 50 ML 100 MG IV ×3 (08:07→23:44)
[2022-08-26] MEDS: tranexamic acid 1,000 mg/10mL SDV 1000 MG IV (08:57)
--- NOTE | 2022-08-26 09:59 | P.OP_ITS ---
Operative Report Date of procedure: August 26, 2022 Pre-op diagnosis: Preop Diagnosis Osteoarthritis left hip Post-op diagnosis: same Post-op diagnosis: Same Procedure done: Left total hip arthroplasty Implants: 1) Br[place] 54 mm Trident 2 solid back acetabular shell 2) Size 6 Br[place]ingham 132 degree neck angle Accolade 2 stem 3} 28mm -2.7 standard ceramic femoral head 4} size E MDM metal liner Pathology: none sent Surgeon: Luis Eduardo Duque Certified Court Interpreter: Clifford Thakur Certified Court Interpreter: The nurse practitioner assisted with critical portions of the case including positioning, exposure, implantation of components, closure, and postoperative abduction pillow application. Anesthesia: Nerve Block (Spine) Estimated blood loss (mL): 100 Findings: The patient has severe degenerative changes of the left hip with eburnated bone over the femoral head and acetabulum and large peripheral osteophytes about the femoral head Condition: stable Disposition: PACU Brief History: This is a 61-year-old female with a 1 year progressive history of functionally limiting left hip pain. She had a previous history of a right total hip arthroplasty and wishes to proceed with a left to improve pain and function Procedure: The patient was taken to the operating room and anesthesia provided by the anesthesia service. The patient was placed in the lateral position on a pegboard. A timeout was performed. The patient was draped in the usual fashion. A 15 cm long incision was made beginning just proximal to the greater trochanter and extending posteriorly to a point just distal to the trochanter on the posterior border of the trochanter. Dissection was carried down with electrocautery through the subcutaneous fat to the fascia nitish which was divided proximally and distally with curved scissors. The anterior two thirds of the gluteus medius and minimus were elevated off the hip with electrocautery. The capsule was divided in a H-like fashion. The hip was dislocated and a neck cut made just above the level of the lesser trochanter. Exposure of the acetabulum was facilitated with the acetabular retractors. Remnants of labrum and peripheral osteophytes were removed with electrocautery and a rongeur. A reamer 2 mm under the size the femoral head was utilized to ream medially to the base of the palm and are. Reaming was then increased in 1 mm intervals until a healthy rim a trabecular bone was encountered. The rim was touched with the reamer the size of the final acetabular shell to be placed. A final Trident 2 acetabular cup of the same size as the final reaming was press- fit into place. The ADM liner was secured. Attention was then focused on the femur. The canal was localized with a canal finder. Broaching was then accomplished until a stable broach size was obtained. A trial reduction with the head and neck provided excellent stability. The wound was irrigated with saline and antibiotic solution. The final Clement Accolade II stem was press-fit into place. The femoral head was placed and the hip was reduced. The hip was brought through range of motion and found to be free of impingement and stable. The anterior capsule was reapproximated with 1 Ethibond. The gluteus medius and minimus were repaired through bone with 5 Ethibond and reinforced with 1 Ethibond. The fascial nitish was closed with a running 0 Stratafix suture. Deep pelvic tissues were closed with 2-0 Stratafix and the skin with a running 4-0 l Stratafix. The skin was covered with a Prineo dressing and op site dressings.
--- NOTE | 2022-08-26 10:07 | XR_ITS ---
WS: [id number] EXAMINATION: XR hip LT 1V wo/w pel [id number] REASON FOR EXAM: Left total hip arthroplasty COMPARISON: 07/24/2022 ORDER DATE: 08/26/2022 10:07 AM TECHNIQUE: Frontal view of the left hip is obtained. X-RAY FINDINGS: Bones/joints: Left total hip replacement noted. Chronic osseous formation around the femoral neck slightly increased compared to prior exam. Minor periarticular soft tissue swelling and a small amount of gas postoperatively noted near the greater trochanter. XR/XR hip LT 1V wo/w pel [id number] IMPRESSION: Satisfactory total hip replacement with recent postsurgical change
--- NOTE | 2022-08-26 10:14 | PC.NURSE ---
Pt arrived to PACU, awake, Dressing to left hip C/D/I, left toes p/w/d, cap refill <3 seconds, pt reports sensations at level L1. SCD's in place and running. Ice pack applied.
--- NOTE | 2022-08-26 10:31 | PC.NURSE ---
Pt blood pressures running low post op, VIDEO NEWS EDITOR at bedside, administered Albumin. Will continue to monitor.
--- NOTE | 2022-08-26 13:54 | ANE.PACU2 ---
Inpatient post-anesthesia follow up: Airway intact: Yes Vital signs: Temperature 97.0 F Pulse Rate 63 Respiratory Rate 18 Blood Pressure 97/63 Pulse Oximetry 97 Oxygen Delivery Me thod Room Air Oxygen Flow Rate Fraction of Inspir ed Oxygen Hydration adequate: Yes Nausea and vomiting: No Pain level: 1 Mental status: Baseline Additional Comments: Episodes of systolics < 80 mmHg. patient awake and alert, following commands stating she was asymptomatic at all times (no dizziness, syncopal premonitions, lightheadedness). Albumin and NS fluid bolus produced systolics > 90 mmHg. Spinal receding appropriately
[2022-08-26] MEDS: oxyCODONE 5 mg IR Tab/Cap PO ×2 (15:09→20:34)
[2022-08-26] MEDS: sodium chloride 0.9% 1,000 ML 100 ML IV ×2 (15:09→23:44)
[2022-08-26] MEDS: morphine 4 mg/mL SDV 1 mL 2 MG IVP (16:12)
[2022-08-26] MEDS: CELEcoxib 200 mg Capsule PO (17:19)
[2022-08-26] MEDS: sennosides-docusate Tablet 2 TAB PO (17:19)
[2022-08-26] MEDS: ALPRAZolam 0.5 mg Tablet PO (17:23)
[2022-08-26] MEDS: nicotine 21 mg Patch 1 PATCH TRANSDERMA (19:05)
[2022-08-26] MEDS: BuSPIRONE 10 mg Tablet PO (20:11)
[2022-08-27 03:48] VITALS: BP 114/66; PULSE 87; RESP 17; TEMP 36.8; O2SAT 95
[2022-08-27 05:44] LABS: Hemoglobin 11.3 g/dL (11.5-15.3)
[2022-08-27] MEDS: acetaminophen 500 mg Tablet 1000 MG PO (06:07)
[2022-08-27 06:08] VITALS: RESP 16
[2022-08-27] MEDS: oxyCODONE 5 mg IR Tab/Cap PO ×2 (06:08→10:29)
[2022-08-27] MEDS: CELEcoxib 200 mg Capsule PO (06:08)
[2022-08-27] MEDS: venlafaxine ER (24HR) 150 mg Capsule 300 MG PO (08:17)
[2022-08-27] MEDS: lisinopril 5 mg Tablet PO (08:17)
[2022-08-27] MEDS: nicotine 21 mg Patch 1 PATCH TRANSDERMA (08:17)
[2022-08-27] MEDS: BuSPIRONE 10 mg Tablet PO (08:18)
[2022-08-27] MEDS: sennosides-docusate Tablet 2 TAB PO (08:18)
[2022-08-27] MEDS: gabapentin 300 mg Capsule PO (08:18)
[2022-08-27] MEDS: aspirin 325 mg EC Tablet PO (08:18)
[2022-08-27] MEDS: pantoprazole DR 40 mg Tablet PO (08:18)
[2022-08-27] MEDS: atorvastatin 40 mg Tablet 20 MG PO (08:18)
[2022-08-27] MEDS: metoprolol tartrate 25 mg Tablet PO (08:19)
[2022-08-27] MEDS: ceFAZolin 2,000 MG in sodium chloride 0.9% (plus) 50 ML 100 MG IV (08:20)
[2022-08-27 08:26] VITALS: BP 122/72; PULSE 86; RESP 18; TEMP 36.8; O2SAT 97
--- NOTE | 2022-08-27 10:00 | PC.CHAP ---
Pastoral Care Encounter/Spiritual Assessment Type of Contact [] Declined social media developer visit [] Patient/Family/Request visit [] Outpatient visit [] Follow-up visit [] Physician referral [] Code/Alert [x] Routine visit [] Staff referral [] Actively dying [] Patient sleeping [] Family support [] [] Out of room [] Palliative care [] [x] Receiving care in room [] Pre-surgical visit [] Trauma [] Long length of stay [] ICU visit [] Other: Relational/Emotional Strength [] Patient feels connected with others/family/visitors/staff [] Distress [] Loneliness/isolation [] Abandonment Spirituality of Patient [] Person of [place] [] Attends Yarsani of their [place] [] Believes in Prayer [] Reads Bible or Episcopalian materials [] There are Spiritual issues to be addressed Flooring Grader Interventions [x] Prayer [] Active listening [] Non-anxious presence [] Spiritual/emotional support [] Crisis/trauma care [] Spiritual counseling [] Bereavement support [] Provided bereavement packet [] Provided Bible/devotional materials [] Provided toy/stuffed animal, coloring book to patient or family member [] Provided Communion [] Anointing/[place] [] Salvation [] Completed spiritual assessment [] Other: Impact on Illness or Injury [] Angry [] Fearful [] Anxious [] Often cries [] Exhaustion [] Unable to work [] Unable to attend religion [] Unable to walk/stand [] Unable to read [] Unable to drive [] Unable to eat/drink [] Unable to sleep [] Unable to be with family [] Patient intubated [] Other: Summary Time spent with patient 5 min
[2022-08-27 10:29] VITALS: RESP 18
[2022-08-27 10:48] VITALS: BP 122/72; PULSE 86; RESP 18; TEMP 36.8; O2SAT 97
[2022-08-27 11:18] LABS: Glucose Point of Care 118 mg/dL (70-110)
--- NOTE | 2022-08-27 13:07 | PM.DCS ---
Discharge Providers Date of Admission: 08/26/22 11:29 Date of Discharge: August 27, 2022 Attending Provider at Admission: Luis Eduardo Figueroa MD Attending Provider at Discharge: Luis Eduardo Figueroa MD Primary Care Provider: WAYNE Pimentel Diagnoses at Discharge Discharge Diagnosis (1) Osteoarthritis of left hip: Status: Resolved (2) Status post left hip replacement: Status: Acute Reason for Visit Reason for Visit: M16.12 Hospital Course Hospital Course The patient tolerated surgery well. They remained hemodynamically stable. They was begun on aspirin and sequential compression dressing for DVT prophylaxis. The patient was mobilized with therapy beginning the day of surgery and by the first postoperative day independent with the walker. As the pain was adequately controlled and they were fully mobile they were discharged home. Physical Exam Narrative: On the day of discharge the hip incision was clean. The incision was free of drainage. They had no particular swelling about the thigh or distal. No distal neurovascular deficits were noted. Urinary Catheter Management: Hough: Cath Placed During This Visit: yes, but has since been removed by the nurse Reason for Continuing Indwelling Catheter: Decision to DC Catheter Urinary Catheter Date of Insertion: 08/26/22 Urinary Catheter Time of Insertion: 08:50 Date Urinary Catheter Removed: 08/27/22 Time Urinary Catheter Discontinued: 06:42 Discharge Data Studies Completed and Pending Completed Studies During Hospitalization Category Date Time Status XR hip LT 1V wo/w pel [id number] Routine Exams 08/26/22 10:07 Completed Radiology Impressions Hip X-Ray 08/26/22 10:07 IMPRESSION: Satisfactory total hip replacement with recent postsurgical change Laboratory Results WBC 9.4 10^3/uL (4.0-10.0) 08/16/22 13:30 RBC 4.37 10^6/uL (4.1-5.3) 08/16/22 13:30 Hgb 11.3 g/dL (11.5-15.3) L 08/27/22 05:04 Hct 42.9 % (37.0-47.0) 08/16/22 13:30 MCV 98.2 fl (81-99) 08/16/22 13:30 MCH 32.3 pg (28.0-34.0) 08/16/22 13:30 MCHC 32.9 g/dL (30.0-36.0) 08/16/22 13:30 RDW 14.2 % (12.1-15.1) 08/16/22 13:30 Plt Count 321 10^3/cmm (130-400) 08/16/22 13:30 MPV 9.8 fL (7.4-10.4) 08/16/22 13:30 Neut % (Auto) 64.4 % 08/16/22 13:30 Lymph % (Auto) 24.9 % 08/16/22 13:30 [place] % (Auto) 7.2 % 08/16/22 13:30 Eos % (Auto) 2.8 % 08/16/22 13:30 Baso % (Auto) 0.5 % 08/16/22 13:30 Neut # (Auto) 6.08 10^3/uL (1.8-7.7) 08/16/22 13:30 Lymph # (Auto) 2.4 10^3/uL (0.8-4.8) 08/16/22 13:30 [place] # (Auto) 0.7 10^3/uL (0.2-0.9) 08/16/22 13:30 Eos # (Auto) 0.3 10^3/uL (0.0-0.8) 08/16/22 13:30 Baso # (Auto) 0.1 10^3/uL (0.0-0.1) 08/16/22 13:30 Nucleated RBC % (auto) 0 % 08/16/22 13:30 Nucleated RBCs # 0.0 /100WBC 08/16/22 13:30 Sodium 140 mmol/L (136-145) 08/16/22 13:30 Potassium 4.1 mmol/L (3.5-5.1) 08/16/22 13:30 Chloride 102 mmol/L (98-107) 08/16/22 13:30 Carbon Dioxide 28 mmol/L (22-29) 08/16/22 13:30 Anion Gap 14.1 (5-19) 08/16/22 13:30 BUN 11 mg/dL (8-23) 08/16/22 13:30 Creatinine 0.6 mg/dL (0.5-0.9) 08/16/22 13:30 GFR Calculation 101.0 mL/min (90-130) 08/16/22 13:30 Glucose 98 mg/dL (65-115) 08/16/22 13:30 POC Glucose 118 mg/dL (70-110) H 08/27/22 11:14 Calculated Osmolality 289 mOsm/kg (285-295) 08/16/22 13:30 Calcium 9.2 mg/dL (8.5-10.5) 08/16/22 13:30 Total Bilirubin 0.3 mg/dL (0.15-1.2) 08/16/22 13:30 AST 19 U/L (0-32) 08/16/22 13:30 ALT 14 U/L (0-33) 08/16/22 13:30 Alkaline Phosphatase 120 U/L (35-105) H 08/16/22 13:30 Total Protein 7.0 g/dL (6.6-8.7) 08/16/22 13:30 Albumin 4.0 g/dL (3.5-5.2) 08/16/22 13:30 Globulin 3.0 g/dL (1.3-4.6) 08/16/22 13:30 Vitals Last Vital Signs Temp 98.2 F 08/27/22 10:48 Pulse 86 08/27/22 10:48 Resp 18 08/27/22 10:48 BP 122/72 08/27/22 10:48 Pulse Ox 97 08/27/22 10:48 O2 Del Method 08/27/22 03:48 Discharge Plan Discharge Patient Disposition: Home Condition: Stable Prescriptions: New celecoxib 200 mg Capsule 200 mg PO Q12H 14 Days Qty: 28 0RF acetaminophen 500 mg Tablet 1,000 mg PO Q8H 14 Days Qty: 84 0RF aspirin 325 mg Tablet,Delayed Release (Dr/Ec) 325 mg PO DAILY 30 Days Qty: 30 0RF gabapentin 300 mg Capsule 300 mg PO BID@0900,2100 7 Days Qty: 14 0RF oxycodone 5 mg Tablet 5 mg PO Q4H PRN (Reason: Moderate Pain) 7 Days Qty: 40 0RF Continued glucosamine sulfate [Glucosamine] 500 mg tablet 500 mg PO DAILY metoprolol tartrate 25 mg tablet 25 mg PO DAILY lovastatin 40 mg tablet 40 mg PO DAILY lisinopril [Zestril] 5 mg tablet 5 mg PO DAILY pantoprazole [Protonix] 40 mg tablet,delayed release (DR/EC) 40 mg PO DAILY buspirone 10 mg Tablet 10 mg PO 0900,2100 30 Days Qty: 60 1RF alprazolam [Xanax] 0.5 mg tablet 0.5 mg PO DAILY PRN (Reason: Anxiety) 30 Days Qty: 30 1RF venlafaxine 150 mg capsule,extended release 24hr 300 mg PO DAILY multivitamin Tablet 1 tab PO DAILY naproxen sodium 200 mg PO PRN PRN (Reason: Pain) Discharge Orders: Discharge Order (Routine); Ordered 08/27/22 Ordered By: Luis Eduardo Figueroa Other Ambulatory Orders: Physical Therapy Eval and Treat Outpatient (Order) Timeframe: 3 Days Facility: [facility] - Location: Physical Therapy [facility] Ordered By: Luis Eduardo Figueroa Referrals: Clifford Thakur FNP [Physician Service Unit Operator [employer]] - 08/30/22 9:15 am Discharge Diet: Advance as tolerated Discharge Activity: Limit activity as instructed Patient Instructions: Oxycodone/Acetaminophen (By mouth), Aspirin (By mouth), Gabapentin (By mouth) (Neurontin, FusePaq Fanatrex, [place],..., Celecoxib (By mouth), Total Hip Replacement (DC), Joint Replacement Stoplight, Opioid Safety Activity Restrictions/Additional Instructions: Okay to shower. No soaking incision in tub Apply FirstIce up to 20 min/hr for pain and swelling Take Celebrex twice a day for the next 15 days for pain , discontinue other anti-inflammatories Take Neurontin twice a day for 7 days. Take Tylenol 500mg (up to 2 tabs) 3 times a day for mild pain Take oxycodone for breakthrough pain. Exercises per physical therapy. May weight-bear as tolerated on total hip arthroplasty IF HAVE ANY PROBLEMS OR QUESTIONS CALL HOSPITAL SUPERVISOR PURIFICATION AT AND ASK TO HAVE DR. FIGUEROA PAGED. Discharge Attestations Time Spent in Discharge Care*: other Quality Metrics Clinical Quality Measures [ No reported AMI, CVA or VTE this stay] Coding Level of Care Code Acute Code for [facility] Fwd Diagnoses Osteoarthritis of left hip M16.12 Status post left hip replacement Z96.642
== END 2022-08-27 10:30 | disposition home or self-care (01) ==
LOC: MEDSURG 11:49
PROVIDERS: Anesthesiology; Admitting Provider Orthopaedic Surgery; PCP Nurse Practitioner Family; Visit Provider Orthopaedic Surgery
PROC: (CPT 27130; principal; 2022-08-26 07:35)
DX: M16.12 Unilateral primary osteoarthritis, left hip (principal); F17.200 Nicotine dependence, unspecified, uncomplicated; I10 Essential (primary) hypertension; K21.9 Gastro-esophageal reflux disease without esophagitis; E78.5 Hyperlipidemia, unspecified
CPT/HCPCS: 27130; 36415; 36416; 51702; 73501; 80053; 82962; 85018; 85025; 97110; 97116; 97161; 97165; 97530; 97535; C1776; G0378; J0690; J1580; J2250; J2270; J2704; J3490; J7030; P9045

== ENCOUNTER 2022-10-03 09:32 | Outpatient (CLI) | payer BC, SELFPAY ==
--- NOTE | 2022-10-03 10:01 | US_ITS ---
WS: [id number] ULTRASOUND BILATERAL BREAST HISTORY: 6 MONTH FOLLOWUP COMPARISON: 12/11/2021 TECHNIQUE: 2-D and Doppler. RIGHT breast: Complex cluster of cysts in the RIGHT breast at the areolar measures 5 x 4 x 10 mm and is unchanged. No increase in size and no increased vascularity. LEFT breast: Very small cluster of cysts at 2:00, 1 cm from the nipple is reidentified measuring 8 x 3 x 8 mm also stable and unchanged. US/US breast BI limited* [id number] IMPRESSION: BI-RADS: 3-Probably Benign FOLLOW-UP: 1 Year Follow-up Ultrasound follow-up in one year of the complex cysts within each breast.
== END 2022-10-03 09:33 | disposition home or self-care (01) ==
PROVIDERS: PCP Family Medicine; Visit Provider Nurse Practitioner Family
DX: R92.8 Other abnormal and inconclusive findings on diagnostic imaging of breast (principal); N60.02 Solitary cyst of left breast; N60.01 Solitary cyst of right breast; Z47.89 Encounter for other orthopedic aftercare; Z96.642 Presence of left artificial hip joint
CPT/HCPCS: 73502; 76642

== ENCOUNTER → 2022-12-26 10:31 | Outpatient (BNVA) | payer BC, SELFPAY | PROVIDERS: PCP Family Medicine; Visit Provider Nurse Practitioner Family | DX: Z96.642 Presence of left artificial hip joint (principal) | CPT/HCPCS: 73502 ==

== ENCOUNTER 2023-03-12 06:00 | Outpatient (RCR) | payer BC, SELFPAY | END 2023-04-08 23:59 | disposition home or self-care (01) | LOC: MPT 06:00 | PROVIDERS: Visit Provider Nurse Practitioner Family | DX: Z47.1 Aftercare following joint replacement surgery (principal); Z96.642 Presence of left artificial hip joint | CPT/HCPCS: 97110; 97162 ==

== ENCOUNTER 2023-04-09 06:00 | Outpatient (RCR) | payer BC, SELFPAY | END 2023-05-08 23:59 | disposition home or self-care (01) | LOC: MPT 06:00 | PROVIDERS: Visit Provider Nurse Practitioner Family | DX: Z47.1 Aftercare following joint replacement surgery (principal); Z96.642 Presence of left artificial hip joint | CPT/HCPCS: 97530 ==

== ENCOUNTER 2023-08-04 18:19 | Emergency (ER) | payer BC, SELFPAY ==
[2023-08-04 18:20] VITALS: BP 139/83; PULSE 71; TEMP 36.6; O2SAT 94; BMI 26.6
--- NOTE | 2023-08-04 18:28 | CT_ITS ---
WS: [id number] CT HEAD NONCONTRAST HISTORY: fall TECHNIQUE: Contiguous axial imaging performed through the brain in 2.5 mm imaging. Bone and soft tiss ue windows. Sagittal and coronal reformats reviewed. All CT scans at [facility] use at least one of these dose optimization techniques: automated exposure control; mA and/or kV adjustment per pa tient size (includes targeted exams where dose is matched to clinical indication); or iterative recon struction. DLP: 1025.98 mGy.cm COMPARISON: None available. No acute intracranial hemorrhage, midline shift or mass effect. Moderate symmetric atrophy and volume loss. Mild small vessel ischemic disease. No acute hemorrhage. Ventricles: Normal size with no hydrocephalus. No intra displacement the cerebellar tonsils. Paranasal sinuses: As visualized are clear. Mastoid air cells: Well pneumatized. Calvarium and scalp: No skull fracture. There is a soft tissue scalp hematoma over the lateral RIGHT frontotemporal bone. IMPRESSION: No acute intracranial hemorrhage or edema. Moderate atrophy and small vessel ischemic disease. No fracture. Soft tissue scalp hematoma centered over the RIGHT lateral frontotemporal bone.
--- NOTE | 2023-08-04 18:35 | ED_ITS ---
HPI - Alcohol 2 General: Chief Complaint: Alcohol Stated Complaint: fall, alcohol withdrawl Time Seen by Provider: 08/04/23 18:20 Source: patient Mode of arrival: ambulatory Limitations: no limitations History of Present Illness: 62-year-old female states she is a daily drinker she states she had been drinking today was outside burning brush fell and hit her head. She did have a loss of consciousness. She has a slight headache denies any pain elsewhere. She denies any worsening improving factors. Associated symptoms: Deny abdominal pain, nausea or vomiting Review of Systems 2 Const: Denies: fever(s), chills, body aches or change in appetite Eyes: Denies: blurry vision ENMT: Denies: throat pain or dental pain Card: Denies: chest pain Resp: Denies: dyspnea GI: Denies: abdominal pain, nausea, vomiting or diarrhea Musc: Denies: neck pain or back pain Skin/Breast: Denies: rash Neuro: Reports: headache(s) Abhilash/Lymph: Denies: easy bruising PFSH ED 2 PFSH: Social History Smoking and tobacco/nicotine status: current every day tobacco/nicotine user Alcohol intake: current Alcohol intake frequency: holidays/special occasions only Substance/Drug Use: never Physical Exam 2 Const: COMMON NORMALS: no acute distress, patient oriented x3 and healthy appearing HENMT: COMMON NORMALS: normocephalic HEAD & SCALP: normocephalic OTHER: abrasion to right forehead Eye: COMMON NORMALS: Equal, round and reactive pupils present and EOMs intact bilaterally PUPIL: Yes Equal, round and reactive pupils present Neck/C-Spine: COMMON NORMALS: full ROM and supple CERVICAL SPINE: Yes cervical ROM normal, No pain with cervical ROM and No Cervical spine tenderness Chest: COMMONS NORMALS: normal inspection of the chest Resp: COMMON NORMALS: normal respiratory effort, No retractions, No use of accessory muscles and clear to auscultation bilaterally AUSCULTATION: clear to auscultation bilaterally Cardio: COMMON NORMALS: regular rate, regular rhythm and No murmurs present (Cardio) RATE: regular rate RHYTHM: regular rhythm GI: COMMON NORMALS: Normal to inspection, nondistended, normoactive bowel sounds present, Soft to palpation, non-tender and no masses PALPATION: Yes Soft to palpation Extremity: COMMON NORMALS: normal to inspection and full ROM Neuro: COMMON NORMALS: patient oriented x3, moves all extremities and no focal motor deficits Psych: COMMON NORMALS: mental status grossly normal, Normal thought process present and cooperative THOUGHT PROCESS: Normal thought process present Skin: COMMON NORMALS: no rashes or lesions noted and no wounds GENERAL SKIN EXAM: no rashes or lesions noted Course 2 Vital Signs: Vital signs: Vital Signs Temperature 97.8 F 08/04/23 18:20 Pulse Rate 68 08/04/23 18:58 Respiratory Rate 16 08/04/23 18:58 Blood Pressure 124/71 08/04/23 18:58 Pulse Oximetry 96 08/04/23 18:58 Oxygen Delivery Me thod Room Air 08/04/23 18:58 MDM - Alcohol Medical Decision Making Patient presents for closed head injury from a fall she has no neck pain blood work here is normal she is mildly intoxicated she is able to ambulate here answer all questions she is clinically sober she is stable for discharge at this time. Medical Records I reviewed the patient's medical records. Lab Data I reviewed the patient's lab results. 08/04/23 18:36 08/04/23 18:36 Laboratory Results WBC 9.50 10^3/uL (3.29-11.43) 08/04/23 18:36 RBC 4.54 10^6/uL (3.85-5.65) 08/04/23 18:36 Hgb 15.00 g/dL (11.27-16.99) 08/04/23 18:36 Hct 43.5 % (36-47) 08/04/23 18:36 MCV 95.8 fl (85-98) 08/04/23 18:36 MCH 33.0 pg (27-33) 08/04/23 18:36 MCHC 34.5 g/dL (30-55) 08/04/23 18:36 RDW 13.5 % (12.1-15.1) 08/04/23 18:36 Plt Count 325 10^3/cmm (157-399) 08/04/23 18:36 MPV 9.4 fL (7.4-10.4) 08/04/23 18:36 Neut % (Auto) 58.5 % 08/04/23 18:36 Lymph % (Auto) 30.2 % 08/04/23 18:36 [place] % (Auto) 7.6 % 08/04/23 18:36 Eos % (Auto) 2.7 % 08/04/23 18:36 Baso % (Auto) 0.4 % 08/04/23 18:36 Neut # (Auto) 5.55 10^3/uL (1.8-7.7) 08/04/23 18:36 Lymph # (Auto) 2.9 10^3/uL (0.8-4.8) 08/04/23 18:36 [place] # (Auto) 0.7 10^3/uL (0.2-0.9) 08/04/23 18:36 Eos # (Auto) 0.3 10^3/uL (0.0-0.8) 08/04/23 18:36 Baso # (Auto) 0.0 10^3/uL (0.0-0.1) 08/04/23 18:36 Nucleated RBC % (auto) 0 % 08/04/23 18:36 Nucleated RBCs # 0.0 /100WBC 08/04/23 18:36 Sodium 136 mmol/L (136-145) 08/04/23 18:36 Potassium 4.1 mmol/L (3.5-5.1) 08/04/23 18:36 Chloride 102 mmol/L (98-107) 08/04/23 18:36 Carbon Dioxide 22 mmol/L (22-29) 08/04/23 18:36 Anion Gap 16.1 (5-19) 08/04/23 18:36 BUN 13 mg/dL (8-23) 08/04/23 18:36 Creatinine 0.6 mg/dL (0.5-0.9) 08/04/23 18:36 GFR Calculation 100.6 mL/min (90-130) 08/04/23 18:36 Glucose 75 mg/dL (65-115) 08/04/23 18:36 Calculated Osmolality 281 mOsm/kg (285-295) L 08/04/23 18:36 Calcium 8.7 mg/dL (8.5-10.5) 08/04/23 18:36 Total Bilirubin 0.3 mg/dL (0.15-1.2) 08/04/23 18:36 AST 30 U/L (0-32) 08/04/23 18:36 ALT 22 U/L (0-33) 08/04/23 18:36 Alkaline Phosphatase 134 U/L (35-105) H 08/04/23 18:36 Total Protein 7.1 g/dL (6.6-8.7) 08/04/23 18:36 Albumin 4.2 g/dL (3.5-5.2) 08/04/23 18:36 Globulin 2.9 g/dL (1.3-4.6) 08/04/23 18:36 Urine Color Light yellow (Yellow) 08/04/23 18:56 Urine Appearance Clear (CLEAR) 08/04/23 18:56 Urine pH 5 (5-7) 08/04/23 18:56 Ur Specific [place] 1.000 (1.005-1.030) L 08/04/23 18:56 Urine Protein Neg (Negative) 08/04/23 18:56 Urine Glucose (UA) Norm (Normal) 08/04/23 18:56 Urine Ketones Negative (Negative) 08/04/23 18:56 Urine Blood 2+ (Negative) H 08/04/23 18:56 Urine Nitrate Negative (Negative) 08/04/23 18:56 Urine Bilirubin Neg (Negative) 08/04/23 18:56 Urine Urobilinogen Norm mg/dL (Negative) 08/04/23 18:56 Ur Leukocyte Esterase Negative (Negative) 08/04/23 18:56 Urine RBC 0-4 /hpf (0-2) H 08/04/23 18:56 Urine WBC None /hpf (0-5) 08/04/23 18:56 Ur Squamous Epith Cells 0-4 /hpf (0-5) H 08/04/23 18:56 Amorphous Sediment Not Reportable 08/04/23 18:56 Urine Bacteria Trace /hpf (NONE) 08/04/23 18:56 Ethyl Alcohol 168 mg/dL (0-10) H 08/04/23 18:36 All radiology interpretation(s) finalized by discharge Discharge Plan Discharge Patient Disposition: Home Clinical Impression: Alcohol use, Closed head injury, Fall Condition: Stable Prescriptions: No Action glucosamine sulfate [Glucosamine] 500 mg tablet 500 mg PO DAILY metoprolol tartrate 25 mg tablet 25 mg PO DAILY lovastatin 40 mg tablet 40 mg PO DAILY lisinopril [Zestril] 5 mg tablet 5 mg PO DAILY pantoprazole [Protonix] 40 mg tablet,delayed release (DR/EC) 40 mg PO DAILY buspirone 10 mg Tablet 10 mg PO 0900,2100 30 Days Qty: 60 1RF alprazolam [Xanax] 0.5 mg tablet 0.5 mg PO DAILY PRN (Reason: Anxiety) 30 Days Qty: 30 1RF venlafaxine 150 mg capsule,extended release 24hr 300 mg PO DAILY multivitamin Tablet 1 tab PO DAILY naproxen sodium 200 mg PO PRN PRN (Reason: Pain) Discharge Orders: Discharge ED (Routine); Ordered 08/04/23 Ordered By: Chhaya Mckeon Discharge Diet: Advance as tolerated Discharge Activity: Resume usual activity Patient Instructions: Head Injury (ED) Coding Level of Care Code ED Occupancy Specialist for David Valente
[2023-08-04 18:46] LABS: Basophils % 0.4 %; Eosinophils # 0.3 10^3/uL (0.0-0.8); Eosinophils % 2.7 %; Hematocrit 43.5 % (36-47); Lymphocytes # 2.9 10^3/uL (0.8-4.8); Lymphocytes % 30.2 %; Mean Corpuscular HGB Conc 34.5 g/dL (30-55); Mean Corpuscular Volume 95.8 fl (85-98); Mean Platelet Volume 9.4 fL (7.4-10.4); Monocytes # 0.7 10^3/uL (0.2-0.9); Monocytes % 7.6 %; Neutrophils # 5.55 10^3/uL (1.8-7.7); Neutrophils % 58.5 %; Nucleated Red Blood Cells % 0 %; Platelet Count 325 10^3/cmm (157-399); Red Blood Count 4.54 10^6/uL (3.85-5.65); Red Cell Distribution Width 13.5 % (12.1-15.1)
[2023-08-04 18:58] VITALS: BP 124/71; PULSE 68; RESP 16; O2SAT 96
[2023-08-04 19:02] LABS: Alanine Aminotransferase 22 U/L (0-33); Albumin Level 4.2 g/dL (3.5-5.2); Alcohol Level 168 mg/dL (0-10); Alkaline Phosphatase 134 U/L (35-105); Anion Gap 16.1 (5-19); Aspartate Amino Transferase 30 U/L (0-32); Blood Urea Nitrogen 13 mg/dL (8-23); Calcium 8.7 mg/dL (8.5-10.5); Carbon Dioxide 22 mmol/L (22-29); Chloride 102 mmol/L (98-107); Creatinine Clr Calc Pharmacy 94.5523; Globulin 2.9 g/dL (1.3-4.6); Glomerular Filtration Rate 100.6 mL/min (90-130); Glucose 75 mg/dL (65-115); Osmolality Calculated 281 mOsm/kg (285-295); Potassium 4.1 mmol/L (3.5-5.1); Sodium 136 mmol/L (136-145); Total Bilirubin 0.3 mg/dL (0.15-1.2); Total Protein 7.1 g/dL (6.6-8.7)
[2023-08-04] MEDS: sodium chloride 0.9% 1,000 ML 999 ML IV (19:02)
[2023-08-04 19:07] LABS: Add Urine Microscopic? YES; Bacteria Urine TRACE /hpf; Bilirubin Urine Neg (Negative); Blood Urine 2+ (Negative); Glucose Urine UA Norm (Normal); Ketones Urine Negative (Negative); Leukocyte Esterase Urine Negative (Negative); Nitrate Urine Negative (Negative); Protein Urine Neg (Negative); RBC Urine 0-4 /hpf (0-2); Squamous Epithelial Cell Urine 0-4 /hpf (0-5); Urine Appearance Clear (CLEAR); Urine Color Light yellow (Yellow); Urobilinogen Urine Norm (Negative); pH Urine 5 (5-7)
[2023-08-04 19:08] LABS: Add Urine Culture? No
== END 2023-08-04 19:47 | disposition home or self-care (01) ==
PROVIDERS: Emergency Provider Emergency Medicine
DX: S09.8XXA Other specified injuries of head, initial encounter (principal); F10.90 Alcohol use, unspecified, uncomplicated; Z72.0 Tobacco use; W18.39XA Other fall on same level, initial encounter
CPT/HCPCS: 36415; 70450; 80053; 80307; 81001; 85025; 96361; 96374; 99285; J3411; J7030

== ENCOUNTER → 2024-03-10 13:58 | Outpatient (BNVA) | payer BC, SELFPAY | PROVIDERS: PCP Nurse Practitioner Family; Visit Provider Specialist | DX: M17.0 Bilateral primary osteoarthritis of knee (principal); M25.761 Osteophyte, right knee | CPT/HCPCS: 73560; 73565 ==

== ENCOUNTER 2024-06-28 13:37 | Outpatient (CLI) | payer BC, SELFPAY ==
--- NOTE | 2024-06-28 | MM_ITS ---
WS: [id number] BILATERAL 3D TOMOSYNTHESIS DIGITAL SCREENING MAMMOGRAPHY WITH CAD CLINICAL INFORMATION: ANNUAL SCREEN HISTORY: Screening mammogram. No current complaints. COMPARISON: 2021 TECHNIQUE: Bilateral CC and MLO views. FINDINGS: Scattered fibroglandular densities bilaterally. No suspicious focal mass, asymmetry, calcifications, or architectural distortion. No evidence of malignancy. Progressed 6 mm nodule anterior RIGHT breast. Recommend RIGHT breast diagnostic mammography and ultrasound. LEFT breast is unchanged. MM/MM [facility] tomosynthesis [id number] IMPRESSION: DENSITY: There are scattered areas of fibroglandular density. BI-RADS: 0 - Incomplete: Need additional imaging evaluation. FOLLOW UP: Need Additional Imaging Recommend RIGHT breast diagnostic mammography and ultrasound in further evaluat ion.
--- NOTE | 2024-06-28 13:43 | XR_ITS ---
WS: [id number] DEXA (DUAL ENERGY X-RAY ABSORPTIOMETRY) Bone mineral density was performed using a Misohoni machine. HISTORY: Z80.1 COMPARISON: None available. Lumbar spine BMD (L1-L4): 1.132 g/cm2 T score: -0.4 Z score: 0.9 Left forearm BMD: 0.848 g/cm2. T score: -0.3 Z score: 1.1 XR/XR DEXA axial skeleton* [id number] IMPRESSION: NORMAL BONE MINERAL DENSITY based upon the WHO classification for females.
== END 2024-06-28 13:38 | disposition home or self-care (01) ==
LOC: RAD 13:38
PROVIDERS: PCP Nurse Practitioner Family; Visit Provider Nurse Practitioner Family
DX: Z12.31 Encounter for screening mammogram for malignant neoplasm of breast (principal); Z78.0 Asymptomatic menopausal state; R92.323 Mammographic fibroglandular density, bilateral breasts; R92.8 Other abnormal and inconclusive findings on diagnostic imaging of breast; N63.10 Unspecified lump in the right breast, unspecified quadrant
CPT/HCPCS: 77063; 77067; 77080

== ENCOUNTER → 2025-01-24 09:19 | Outpatient (BNVA) | payer BC, SELFPAY | PROVIDERS: PCP Nurse Practitioner Family; Visit Provider Specialist | DX: M17.11 Unilateral primary osteoarthritis, right knee (principal) | CPT/HCPCS: 73560; 73565 ==

== ENCOUNTER 2025-02-23 12:26 | Outpatient (RCR) | payer BC, SELFPAY | END 2025-03-08 23:59 | disposition home or self-care (01) | LOC: MPT 12:26 | PROVIDERS: PCP Nurse Practitioner Family; Visit Provider Specialist | DX: M17.0 Bilateral primary osteoarthritis of knee (principal) | CPT/HCPCS: 97110; 97162; G0283 ==

== ENCOUNTER 2025-03-30 14:53 | Outpatient (RCR) | payer BC, SELFPAY | END 2025-03-31 10:47 | disposition home or self-care (01) | LOC: MPT 14:53 | PROVIDERS: PCP Nurse Practitioner Family; Visit Provider Specialist | DX: M17.0 Bilateral primary osteoarthritis of knee (principal) | CPT/HCPCS: 97110 ==

== ENCOUNTER → 2025-04-20 13:47 | Outpatient (BNVA) | payer BC, SELFPAY | PROVIDERS: PCP Nurse Practitioner Family; Visit Provider Specialist | DX: M17.11 Unilateral primary osteoarthritis, right knee (principal) | CPT/HCPCS: 36415; 73560; 73565; 80053; 81001; 85025 ==

== ENCOUNTER 2025-05-18 13:27 | Outpatient (CLI) | payer BC, SELFPAY ==
--- NOTE | 2025-05-18 13:45 | CT_ITS ---
WS: [id number] CT RIGHT knee, noncontrast HISTORY: PAIN TECHNIQUE: Protocol for [facility] total knee replacement has been obtained. This includes axial imaging through the RIGHT hip, RIGHT knee and RIGHT ankle. DLP: 1031.33 mGy.cm COMPARISON: Radiographs 04/20/2025 RIGHT hip: Prior RIGHT arthroplasty. No acute fractures. No lucency around the hardware. Beam hardening artifact through the pelvis secondary to bilateral hip prostheses. RIGHT knee: Moderate to severe joint space narrowing with marginal osteophytes. No fractures. There is a large osteophyte extending posteriorly from the lateral tibial plateau. Small joint effusion. Moderate size Padron's cyst with calcified bodies. RIGHT ankle: Negative. CT/CT knee RT [facility] [id number] IMPRESSION: CT imaging provided for [facility] robotic total knee replacement.
== END 2025-05-18 13:28 | disposition home or self-care (01) ==
LOC: RAD 13:28
PROVIDERS: PCP Nurse Practitioner Family; Visit Provider Specialist
DX: M17.11 Unilateral primary osteoarthritis, right knee (principal); Z96.651 Presence of right artificial knee joint
CPT/HCPCS: 73700

== ENCOUNTER → 2025-06-06 11:04 | Outpatient (BNVA) | payer BC, SELFPAY | PROVIDERS: PCP Nurse Practitioner Family; Visit Provider Specialist | DX: Z01.818 Encounter for other preprocedural examination (principal) | CPT/HCPCS: 80053; 81000; 85025 ==

== ENCOUNTER 2025-06-07 10:01 | Observation (INO) | payer BC, SELFPAY ==
[2025-06-07] VITALS (13 sets, daily range): BP systolic 98–149; BP diastolic 61–78; PULSE 61–81; RESP 15–22; TEMP 36.3–36.8; O2SAT 92–98; BMI 26.6
[2025-06-07] MEDS: acetaminophen 1,000 MG/100 ML PIGGYBACK 400 MG IV ×3 (06:32→22:27)
--- NOTE | 2025-06-07 06:52 | ANES.PREANE2 ---
Pre-Anesthetic Assessment Height/Weight: Height 1.65 m Weight 72.575 kg Temp Pulse Resp BP Pulse Ox O2 Del Method 97.4 F L 65 18 149/78 97 Room Air 06/07/25 06:16 06/07/25 06:16 06/07/25 06:16 06/07/25 06:16 06/07/25 06:16 06/07/25 06:22 Operation Date: 06/07/25 07:00 Proposed Procedures p Shahid Robot Total Knee Arthroplasty(Right) - Klaudia Beard MD Familial anesthetic complications: none Was Beta Eduin taken within 24 hours: N/A Was Clonidine taken within 24 hours: N/A Last intake: Intake Last Liquid Date 06/07/25 Last Liquid Time 22:00 Last Solid Date 06/07/25 Last Solid Time 20:00 Social No tobacco hx etoh Exam alert, oriented x 3, clear to auscultation bilaterally and regular rate & rhythm Airway Dentition: false CV/HEM Hypertension GI Gastroesophageal Reflux Disease Metabolic Hyperlipidemia Anesthetic Plan ASA status: 3 Anesthesia: Regional (specify below) Risk of > 500 ml blood loss (7ml/kg in children): No Medications/Allergies Home Medications ?Medication ?Instructions ?Recorded ?Confirmed ?Last Taken ?Type lisinopril 5 mg tablet (Zestril) 5 mg PO DAILY 07/14/19 06/06/25 06/05/25 21:00 History lovastatin 40 mg tablet 40 mg PO DAILY 07/14/19 06/06/25 06/06/25 History metoprolol tartrate 25 mg tablet 25 mg PO DAILY 07/14/19 06/06/25 06/06/25 History pantoprazole 40 mg tablet,delayed 40 mg PO DAILY 07/14/19 06/06/25 06/06/25 History release (Protonix) alprazolam 0.5 mg tablet (Xanax) 0.5 mg PO DAILY PRN Anxiety 30 05/22/20 06/06/25 06/05/25 12:00 Rx days #30 tabs buspirone 10 mg tablet 10 mg PO 0900,2100 30 days #60 tabs 05/22/20 06/06/25 06/06/25 07:00 Rx multivitamin 1 tab PO DAILY 08/16/22 06/06/25 06/07/25 History venlafaxine 150 mg 300 mg PO DAILY 08/16/22 06/06/25 06/06/25 History capsule,extended release 24 hr calcium 600 mg PO DAILY 08/18/24 06/06/25 06/06/25 07:00 History turmic PO 08/18/24 05/26/25 Unknown History meloxicam 15 mg tablet 15 mg PO DAILY #30 tabs 01/27/25 06/06/25 05/30/25 07:00 Rx Allergies Allergy/AdvReac Type Severity Reaction Status Date / Time codeine Allergy nausea Verified 06/06/25 10:07 hydrocodone Allergy nausea Verified 06/06/25 10:07 Current Medications Generic Name Dose Route Start Last Admin Trade Name Freq PRN Reason Stop Dose Admin Sodium Chloride 1,000 mls @ 30 mls/hr 06/07/25 06:15 06/07/25 06:32 Sodium Chloride 0.9% IV 06/08/25 06:14 30 mls/hr .Q24H VÍCTOR Administration PFSH Anesthesia Social History Smoking and tobacco/nicotine status: never used tobacco/nicotine Alcohol intake: current Alcohol intake frequency: holidays/special occasions only Substance/Drug Use: never Anesthesia Procedures Nerve Block Nerve Block 1: Main Anesthesia: spinal anesthesia block Time Out Performed: Yes Consent: requested by attending/covering physician, from patient, from other, risks and benefits reviewed and patient agrees to proceed Nerve block location: adductor canal (Right) Anesthesia monitors applied: pulse oximetry, EKG, BP cuff and oxygen Nerve block position: supine Anesthetic Used: ropivicaine 0.5% (30 ml) and with decadron (4 mg) Ultrasound used to: recognize landmarks and visualize and ID femerol nerve Nerve Stimulator Used?: No Interscalene/Femoral BLK: 4 stimuplex 21 g needle used for position and inplane approach, visualize local anesthetic spread and no vascular puncture identified Injection: neg aspiration of heme Patient Tolerated Procedure: well Complications: none Additional Comments: Diagnosis is post op pain
--- NOTE | 2025-06-07 07:00 | W.PM.OPSUD ---
Surgery/Procedure H&P Update DATE OF PROCEDURE: June 07, 2025 DATE H&P PERFORMED: 04/20/25 H&P UPDATE INFORMATION: I have reviewed H&P completed within last 30 days, I have examined patient prior to procedure, No changes to prior documentation, H&P is in [facility] EMR on date indicated and Risks and benefits of the procedure reviewed CHANGES TO PREVIOUS DOCUMENTATION: Refer to Dr. Cummings pre-op eval for heart and lung eval as well as preop optimization evaluation PLANNED PROCEDURE: Operation Date: 06/07/25 07:00 Proposed Procedures p Shahid Robot Total Knee Arthroplasty(Right) - Klaudia Beard MD Related Problem List Diagnoses 1. Primary osteoarthritis of right knee: Qualifiers: Osteoarthritis type: primary
--- NOTE | 2025-06-07 07:00 | PC.NURSE ---
0635: nerve block for right knee performed by YAMILETH immediately following timeout. using ultrasound guidance 30 ml of ropivicaine injected. pt tolerated well. images obtained
[2025-06-07] MEDS: ceFAZolin 2,000 mg SDV 2000 MG IVP ×3 (07:06→22:27)
[2025-06-07] MEDS: tranexamic acid 1,000 MG/100 ML PREMIX 600 MG IV ×2 (07:40→15:05)
[2025-06-07] MEDS: ceFAZolin 1,000 mg SDV 1000 MG IRRIGATION (08:38)
--- NOTE | 2025-06-07 10:30 | XR_ITS ---
WS: [id number] Right knee, AP and lateral views, 06/07/2025 Clinical Data: Status post right total knee arthroplasty Comparison: AP both knees, right knee, 04/20/2025 Findings: The arthroplasty components are in satisfactory position. There is postoperative air in the joint space. XR/XR knee RT 1-2V 96938 Impression: Right knee arthroplasty.
--- NOTE | 2025-06-07 10:31 | PM.OP ---
Operative Report Date of procedure: June 07, 2025 Pre-op diagnosis: Primary osteoarthritis right knee with valgus deformity and hyperextension Post-op diagnosis: Primary osteoarthritis right knee with valgus deformity, hyperextension, and large osteophytes Post-op findings: Severe degenerative osteoarthritis right knee Procedure done: Right total knee arthroplasty with Shahid guidance Implants: The Clement total knee system with a size 4 triathlon beaded cruciate retaining femur right, a triathlon titanium tibial component size 4 beaded, a triathlon X3 tibial bearing CS insert size 4 X 12 mm and a beaded triathlon titanium asymmetric patella size 32 x 13 mm Specimens removed/disposition: Bone, disposed of Pathology: None Surgeon: Klaudia Beard MD Document Manager: Mare Hagen, nurse practitioner who services were required for retraction, exposure, closure, and completion of the surgical procedure Anesthesia: Spinal (With MAC, ASA 3, supplemental preoperative adductor block) Estimated blood loss (mL): 280 Tourniquet time (min): 0 (Not utilized) IV fluids (mL): 1,600 Urine output (mL): 600 Complications: None Findings: Severe degenerative osteoarthritis with hyperextension, valgus deformity, and large osteophytes Brief History: This 64-year-old woman presents today for same-day surgery in the form of right total knee arthroplasty. 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 She also had anti-inflammatories as well as injection therapies. Patient complained of significant limitations in her activities of daily living. After discussion, she wished to proceed with right total knee arthroplasty. Risks and complications were discussed with her preoperatively, consents were signed and questions were answered. Procedure: The patient was brought to the operating theater, and after undergoing adequate spinal anesthesia with MAC, ASA 3, the right lower extremity was prepped with DuraPrep and draped in usual fashion following placement of a tourniquet high on the leg. The leg was then draped free. Preoperatively, the patient had an adductor block uneventfully per anesthesia. Tourniquet was placed on the leg but was not elevated throughout the surgical procedure. Following exposure of the site of surgery, a surgical pause was performed. At the time of the surgical pause, we confirmed the site and side of surgery. Additionally, we confirmed the appropriate and timely administration of preoperative antibiotics, Ancef 2 g. Tranexamic acid 1 g was given preoperatively and will be given again on the floor for 1 dose postoperatively. The availability of equipment was confirmed, and the patient's identity was verbalized as well. Following the surgical pause, an incision was made centering over the patella continuing proximally and distally as necessary to allow access to the knee joint. Dissection continued through skin and soft tissues using a scalpel. Hemostasis was obtained using electrocautery. The skin incision was followed by a median parapatellar arthrotomy. The leg was extended and the patella was able to be displaced laterally. Appropriate arrays and markers were placed in appropriate position for use of the Shahid. Preoperative planning had been accomplished and was discussed in detail with the [facility] outside sales representative. Intraoperative mapping of the femur and tibia was accomplished after the arrays were placed. This plan was adjusted after intraoperative balancing. Once we had accomplished the Shahid mapping, we began the appropriate resections for placement of the prosthesis. The plan was for a cruciate retaining right total knee arthroplasty. Once appropriate mapping had been accomplished retraction was established using manual retraction by the [facility] leg positioner and retractors. The knee was evaluated. There was eburnation particularly of the medial femoral condyle, and there was diffuse loss of cartilage over the condyles and tibial plateau.? There were also significant large osteophytes which were removed. There was noted to be a valgus deformity as well as hyperextension of the knee. After balancing the knee within the Shahid program, the appropriate bone resection was accomplished. Initial resection was accomplished on the tibia followed by appropriate resections on the femur. We had performed a medial release at the beginning of the procedure to allow for placement of the array. Proximal tibia was evaluated and it was felt that appropriate size for the tibia was a size 4, and appropriate femoral size was a size 4. A trial reduction was accomplished after osteophytes had been removed, the medial and lateral meniscus were excised, and bone cuts had been accomplished as above. We had removed the anterior cruciate ligament at the beginning of the case and preserved the posterior cruciate ligament. Trial reduction was accomplished with a size 4 femoral cruciate retaining component and a size 4 tibia with a CS tibial bearing insert which was 9 mm in thickness. There was still noted to be a hyperextension deformity, and for this reason, trial thickness size was increased to 11 mm. We then subsequently increased to 12 mm. With the [address], the knee appeared straight, and there was excellent stability. Trial reduction demonstrated that the knee had full extension and full flexion. The trial components were removed after the femur had been drilled. Prior to removal of the tibial tray which had been pinned in position with appropriate rotation as determined by the Shahid plan, we broached the tibia. Subsequently, the 4 drill holes were made for the prosthetic component. All trial components had been removed, and the wound was irrigated. Plans were made for insertion of the prosthetic components. Prior to this, the patella was manually prepared. After resection of the articular surface, it was measured and measured a 32 mm patella. Patellar height was restored with the patellar component. Once again, the wound was irrigated. The Tritanium tibia was impacted into position.? The beaded femur was then impacted into position in a cementless fashion. The CS tibial insert was placed prior to placement of the femoral component. The patella was pressed into position with a patellar clamp.? The knee was then copiously irrigated with betadine and saline and suctioned dry. Attention was then directed to closure. Closure was accomplished with 0 Vicryl in the fascial tissues followed by a running #1 strata fix from proximal to distal and another from distal to proximal.? This was followed by Surgiflo and vancomycin powder. Subcutaneous tissues were closed with 2-0 Monocryl interrupted, and the skin was closed in a running subcuticular fashion with 3-0 Monocryl strata fix.? A sterile dressing was then placed consisting of Dermabond Prineo, OpSite, sterile soft roll including over the foot, and an Simon wrap. The patient was returned the Recovery Room in a satisfactory condition. X-rays were obtained and reviewed there.? The patient will be discharged to the floor for postoperative rehabilitation and pain management. Related Problem List Diagnoses 1. Primary osteoarthritis of right knee:
--- NOTE | 2025-06-07 10:50 | ANE.PACU2 ---
Inpatient post-anesthesia follow up: Airway intact: Yes Vital signs: Temperature 98.3 F Pulse Rate 66 Respiratory Rate 16 Blood Pressure 124/67 Pulse Oximetry 95 Oxygen Delivery Me thod Room Air Oxygen Flow Rate Fraction of Inspir ed Oxygen Hydration adequate: Yes Nausea and vomiting: No Pain level: 1 Mental status: Baseline
--- NOTE | 2025-06-07 11:11 | PC.NURSE ---
1059 - accepted into room 271 with Loraine RN at side - no distress in patient noted upon this nurse exiting care - BP 111/69 - savannahe 62 - 02 96% temp 97.7
[2025-06-07] MEDS: oxyCODONE 5 mg IR Tab/Cap PO ×3 (11:20→19:32)
[2025-06-07] MEDS: chlorhexidine gluconate 0.12% Btl 473 mL 30 ML MUCOUS MEM ×3 (12:55→22:47)
[2025-06-07] MEDS: mupirocin oint 22 gm 1 APPLIC NASAL (17:22)
[2025-06-07] MEDS: sennosides-docusate Tablet 2 TAB PO (17:23)
[2025-06-07] MEDS: ATORVASTATIN 20 MG TABLET PO (20:18)
[2025-06-08] VITALS (7 sets, daily range): BP systolic 103–116; BP diastolic 55–69; PULSE 71–72; RESP 15–20; TEMP 36.4–36.7; O2SAT 94–97
[2025-06-08] MEDS: oxyCODONE 5 mg IR Tab/Cap PO ×4 (00:09→13:30)
[2025-06-08] MEDS: sennosides-docusate Tablet 2 TAB PO (04:04)
[2025-06-08] MEDS: venlafaxine ER (24HR) 150 mg Capsule 300 MG PO (04:04)
[2025-06-08] MEDS: multivitamin therapeutic Tablet 1 TAB PO (04:06)
[2025-06-08 05:16] LABS: Hematocrit 30.6 % (36-47); Hemoglobin 10.10 g/dL (11.27-16.99); Mean Corpuscular HGB Conc 33.0 g/dL (30-55); Mean Corpuscular Hemoglobin 33.2 pg (27-33); Mean Corpuscular Volume 100.7 fl (85-98); Nucleated Red Blood Cells % 0 %; Platelet Count 232 10^3/cmm (157-399); Red Blood Count 3.04 10^6/uL (3.85-5.65); White Blood Count 11.41 10^3/uL (3.29-11.43)
[2025-06-08] MEDS: acetaminophen 1,000 MG/100 ML PIGGYBACK 400 MG IV (05:30)
[2025-06-08] MEDS: ceFAZolin 2,000 mg SDV 2000 MG IVP (06:12)
--- NOTE | 2025-06-08 09:35 | PC.CHAP ---
Pastoral Care Encounter/Spiritual Assessment Type of Contact [] Declined casino assistant manager visit [] Patient/Family/Request visit [] Outpatient visit [] Follow-up visit [] Physician referral [] Code/Alert [x] Routine visit [] Staff referral [] Actively dying [] Patient sleeping [] Family support [] [] Out of room [] Palliative care [] [] Receiving care in room [] Pre-surgical visit [] Trauma [] Long length of stay [] ICU visit [] Other: Relational/Emotional Strength [x] Patient feels connected with others/family/visitors/staff [] Distress [] Loneliness/isolation [] Abandonment Spirituality of Patient [x] Person of Flores [] Attends Yazdanism of their Flores [x] Believes in Prayer [] Reads Bible or Yarsanism materials [] There are Spiritual issues to be addressed Reverse Engineer Interventions [x] Prayer [x] Active listening [] Non-anxious presence [x] Spiritual/emotional support [] Crisis/trauma care [] Spiritual counseling [] Bereavement support [] Provided bereavement packet [] Provided Bible/devotional materials [] Provided toy/stuffed animal, coloring book to patient or family member [] Provided Communion [] Anointing/Artemus [] Salvation xx Completed spiritual assessment [] Other: Impact on Illness or Injury [] Angry [] Fearful [] Anxious [] Often cries [] Exhaustion [] Unable to work [] Unable to attend methodist [] Unable to walk/stand [] Unable to read [] Unable to drive [] Unable to eat/drink [] Unable to sleep [] Unable to be with family [] Patient intubated [] Other: Summary Time spent with patient 5 min
--- NOTE | 2025-06-08 14:00 | P.DS_ITS ---
Discharge Providers Date of Admission: 06/07/25 10:01 Date of Discharge: June 08, 2025 Attending Provider at Admission: Klaudia Berad MD Attending Provider at Discharge: Klaudia Beard MD Primary Care Provider: WAYNE Pimentel Diagnoses at Discharge Discharge Diagnosis 1. Primary osteoarthritis of right knee: 2. Status post total right knee replacement not using cement: Reason for Visit Reason for Visit: M17.11 Brief History: This 64-year-old woman presents today for same-day surgery in the form of right total knee arthroplasty. 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 She also had anti-inflammatories as well as injection therapies. Patient complained of significant limitations in her activities of daily living. After discussion, she wished to proceed with right total knee arthroplasty. Risks and complications were discussed with her preoperatively, consents were signed and questions were answered. Hospital Course Hospital Course This 64-year-old woman with admitted under observation status following same-day surgery for total knee arthroplasty. The procedure was well-tolerated. She was seen in her first postop day in her room. She was anxiously anticipating discharge. Large outer dressing was removed. The knee was benign with no evidence of significant swelling. The dressing was dry. She was neurologically intact with no evidence of DVT. Physical Exam Const: COMMON NORMALS: no acute distress, average body habitus, patient oriented x3 and alert GENERAL APPEARANCE: cooperative and comfortable ORIENTATION/CONSCIOUSNESS: Yes awake HENMT: COMMON NORMALS: normocephalic and atraumatic HEAD & SCALP: normocephalic and atraumatic Eye: GENERAL EYE: appearance normal, both eyes and all related structures Chest: COMMONS NORMALS: normal inspection of the chest Resp: COMMON NORMALS: normal respiratory effort EFFORT & INSPECTION: Yes able to speak in complete sentences and Yes symmetric chest movement Extremity: RIGHT LOWER EXTREMITY: Yes knee joint (Primary dressing is dry and intact) Right knee: Yes inspection (No significant ecchymosis or swelling), Yes palpation (Minimal discomfort), Yes ROM (Not evaluated) and Yes neurovascular exam (Intact distally) Neuro: COMMON NORMALS: patient oriented x3 SENSORIUM/ORIENTATION: Yes alert Psych: COMMON NORMALS: mental status grossly normal APPEARANCE: Yes grossly normal ATTITUDE: Yes calm and Yes engaged ATTENTION/CONCENTRATION: Yes attention grossly intact Skin: COMMON NORMALS: no rashes or lesions noted GENERAL SKIN EXAM: no rashes or lesions noted Urinary Catheter Management: Hough: Cath Placed During This Visit: yes, but has since been removed by the nurse Reason for Continuing Indwelling Catheter: Decision to DC Catheter Urinary Catheter Date of Insertion: 06/07/25 Urinary Catheter Time of Insertion: 07:30 Date Urinary Catheter Removed: 06/08/25 Time Urinary Catheter Discontinued: 06:00 Discharge Data Studies Completed and Pending Completed Studies During Hospitalization Category Date Time Status XR knee RT 1-2V 06233 Urgent Exams 06/07/25 10:30 Completed Radiology Impressions Knee X-Ray 06/07/25 10:30 Impression: Right knee arthroplasty. Laboratory Results WBC 11.41 10^3/uL (3.29-11.43) 06/08/25 04:47 RBC 3.04 10^6/uL (3.85-5.65) L 06/08/25 04:47 Hgb 10.10 g/dL (11.27-16.99) L 06/08/25 04:47 Hct 30.6 % (36-47) L 06/08/25 04:47 MCV 100.7 fl (85-98) H 06/08/25 04:47 MCH 33.2 pg (27-33) H 06/08/25 04:47 MCHC 33.0 g/dL (30-55) 06/08/25 04:47 RDW 13.8 % (12.1-15.1) 06/08/25 04:47 Plt Count 232 10^3/cmm (157-399) 06/08/25 04:47 MPV 10.2 fL (7.4-10.4) 06/08/25 04:47 Neut % (Auto) 69.2 % 06/08/25 04:47 Lymph % (Auto) 18.8 % 06/08/25 04:47 [place] % (Auto) 10.8 % 06/08/25 04:47 Eos % (Auto) 0.6 % 06/08/25 04:47 Baso % (Auto) 0.2 % 06/08/25 04:47 Neut # (Auto) 7.91 10^3/uL (1.8-7.7) H 06/08/25 04:47 Lymph # (Auto) 2.1 10^3/uL (0.8-4.8) 06/08/25 04:47 [place] # (Auto) 1.2 10^3/uL (0.2-0.9) H 06/08/25 04:47 Eos # (Auto) 0.1 10^3/uL (0.0-0.8) 06/08/25 04:47 Baso # (Auto) 0.0 10^3/uL (0.0-0.1) 06/08/25 04:47 Nucleated RBC % (auto) 0 % 06/08/25 04:47 Nucleated RBCs # 0.0 /100WBC 06/08/25 04:47 Vitals Last Vital Signs Temp 97.5 F L 06/08/25 13:51 Pulse 71 06/08/25 13:51 Resp 17 06/08/25 13:51 BP 103/55 06/08/25 13:51 Pulse Ox 97 06/08/25 13:51 O2 Del Method Room Air 06/07/25 15:56 Discharge Plan Discharge Patient Disposition: Home Health Service Condition: Stable Prescriptions: New acetaminophen 500 mg Tablet 1,000 mg PO Q8H 15 Days Qty: 90 0RF aspirin 325 mg Tablet,Delayed Release (Dr/Ec) 325 mg PO DAILY 30 Days Qty: 30 0RF oxycodone 5 mg Tablet 5 mg PO Q4H PRN (Reason: Moderate To Severe Pain) 7 Days Qty: 40 0RF Continued metoprolol tartrate 25 mg tablet 25 mg PO DAILY lovastatin 40 mg tablet 40 mg PO DAILY lisinopril [Zestril] 5 mg tablet 5 mg PO DAILY pantoprazole [Protonix] 40 mg tablet,delayed release (DR/EC) 40 mg PO DAILY calcium 600 mg PO DAILY meloxicam 15 mg tablet 15 mg PO DAILY Qty: 30 2RF buspirone 10 mg Tablet 10 mg PO 0900,2100 30 Days Qty: 60 1RF alprazolam [Xanax] 0.5 mg tablet 0.5 mg PO DAILY PRN (Reason: Anxiety) 30 Days Qty: 30 1RF venlafaxine 150 mg capsule,extended release 24hr 300 mg PO DAILY multivitamin Tablet 1 tab PO DAILY turmeric 400 mg Capsule 400 mg PO DAILY Discharge Order = DC NOW: Discharge Order (Routine); Ordered 06/08/25 Ordered By: Klaudia Beard Other Ambulatory Orders: Physical Therapy Eval and Treat Outpatient (Order) Timeframe: 3 Days Facility: [facility] - Location: Physical Therapy Ordered By: Klaudia Beard Referrals: [facility] Home Care ([facility]) [Outside] Klaudia Beard MD [Physician, Orthopedics] - 06/20/25 3:45 pm Discharge Diet: Advance as tolerated and Usual diet Discharge Activity: Increase activity as tolerated, Limit activity as instructed, Use walker/crutches as instructed and As per PT/OT instructions Patient Instructions: Aspirin (By mouth), Oxycodone, Rapid Release (By mouth), Acute Wound Care (DC), Total Knee Replacement (DC), Opioid Safety, Post Anesthesia Care, Patient Portal & Kalee Instructions Activity Restrictions/Additional Instructions: Weight-bear as tolerated. Range of motion, strengthening, and gait training per physical therapy and home health. You may shower, but do not submerge your knee in water. It may get wet. If the bandage begins to leak or you feel that you are getting water against your skin, you may remove the bandage, otherwise, leave it in place until you are seen in the office. Discharge Attestations Time Spent in Discharge Care*: greater than 30 min Specific Discharge Activities: educating patient, documenting/other paperwork and evaluating patient/reviewing data Quality Metrics Clinical Quality Measures [ No reported AMI, CVA or VTE this stay] Coding Level of Care Code Acute Code for Chg Fwd Diagnoses Primary osteoarthritis of right knee M17.11 Osteoarthritis type: primary Status post total right knee replacement not using cement Z96.651
== END 2025-06-08 15:20 | disposition home health service (06) ==
LOC: MEDSURG 10:02
PROVIDERS: Admitting Provider Specialist; PCP Nurse Practitioner Family; Visit Provider Specialist
PROC: 8E0Y0CZ Robotic Assisted Procedure of Lower Extremity, Open Approach (ICD-10-PCS; CPT 27447; principal; 2025-06-07 07:00)
DX: M17.11 Unilateral primary osteoarthritis, right knee (principal); M21.061 Valgus deformity, not elsewhere classified, right knee; M25.361 Other instability, right knee; M25.761 Osteophyte, right knee; I10 Essential (primary) hypertension; K21.9 Gastro-esophageal reflux disease without esophagitis; E78.5 Hyperlipidemia, unspecified
CPT/HCPCS: 27447; 20985; 36415; 51702; 73560; 85025; 97116; 97161; 97165; 97530; A4216; A4649; C1776; G0378; J0131; J0690; J1100; J2250; J2405; J2704; J2795; J3373; J7030; J9999